=== PATIENT | male | born 1945 | race Caucasian/White ===

== ENCOUNTER 2017-06-18 17:08 | Inpatient (IN) | payer MEDICARE ==
--- NOTE | 2017-06-18 17:39 | ED Physician Chart ---
Chief Complaint/HPI - Patient Information Date Seen:: 06/18/17 Time Seen:: 17:19 Chief Complaint:: confused History of Present Illness:: THIS IS A 72 YO MALE SENT FROM A GROUP HOME FOR EVALUATION AND TREATMENT. HE IS CHRONICALLY ILL WITN DEMENTIA,ANEMIA,SCHIZOPHRENIA AND ANXIETY. Allergies:: Allergies Allergy/AdvReac Type Severity Reaction Status Date / Time No Known Allergies Allergy Verified 06/18/17 17:13 Vitals:: Vital Signs - 8 hr 06/18/17 17:14 Temp 97.8 F HR 57 RR 16 BP 121/80 O2 Sat % 97 Historian:: Medical Records Review:: Nurse's Note Reviewed, Old Chart Reviewed, Transfer documents Reviewed Review of Systems - Review of Systems General/Constitutional: No fever, No chills, No weight loss, No weakness, No diaphoresis, No edema, No loss of appetite, Other (THIS PATIENT CANNOT GIVE A REVIEW OF SYSTEMS) Skin: No skin lesions, No rash, No bruising Head: No headache, No light-headedness Eyes: No loss of vision, No pain, No diplopia ENT: No earache, No nasal drainage, No sore throat, No tinnitus Neck: No neck pain, No swelling, No thyromegaly, No stiffness, No mass noted Cardio Vascular: No chest pain, No palpitations, No PND, No orthopnea, No edema Pulmonary: No SOB, No cough, No sputum, No wheezing GI: No nausea, No vomiting, No diarrhea, No pain, No melena, No hematochezia, No constipation, No hematemesis G/U: No dysuria, No frequency, No hematuria Musculoskeletal: No bone or joint pain, No back pain, No muscle pain Endocrine: No polyuria, No polydipsia Psychiatric: No prior psych history, No depression, No anxiety, No suicidal ideation Hematopoietic: No bruising, No lymphadenopathy Allergic/Immuno: No urticaria, No angioedema Neurological: No syncope, No focal symptoms, No weakness, No paresthesia, No headache, No seizure, No dizziness, No confusion, No vertigo Past Medical History - Past Medical History Obtainable: Yes Past Medical History: Dementia Family History: None Social History: Non Smoker, No Alcohol, No Drug Use Surgical History: None Psychiatricy History: Schizophrenia, Dementia Physical Exam - Physical Examination General/Constitutional: Well-developed, well-nourished, Alert, No distress, GCS 15, Non-toxic appearing, Ambulatory Other Gen/Cons comments:: LETHARGIC AND DISORIENTED TIME FOUR. Head: Atraumatic Eyes: Lids, conjuctiva normal, PERRL, EOMI Skin: Nl inspection, No rash, No skin lesions, No ecchymosis, Well hydrated, No lymphadenopathy ENMT: External ears, nose nl, Nasal exam nl, Lips, teeth, gums nl Neck: Nontender, Full ROM w/o pain, No JVD, No nuchal rigidity, No bruit, No mass, No stridor Respiratory: Nl effort/Exclusion, Clear to Auscultation, No Wheeze/Rhonchi/Rales Cardio Vascular: RRR, No murmur, gallop, rubs, NL S1 S2 GI: No tenderness/rebounding/guarding, No organomegaly, No hernia, Normal BS's, Nondistended, No mass/bruits, No McBurney tenderness : No CVA tenderness Extremities: No tenderness or effusion, Full ROM, normal strength in all extremities, No edema, Normal digits & nails Neuro/Psych: Alert/oriented, DTR's symmetric, Normal sensory exam, Normal motor strength, Judgement/insight normal, Mood normal, Normal gait, No focal deficits Other Neuro/Psych comments:: THIS PATIENT AND GENERALIZE WEAKNESS Misc: normal gait, Normal back, No paraspinal tenderness Labs/Radiology/EKG Results - Lab Results Results: Abnormal Lab Results 06/18/17 06/18/17 06/18/17 17:42 17:42 17:42 WBC 6.9 RBC 5.03 Hgb 15.9 Hct 48.4 MCV 96.2 MCH 31.6 H MCHC Differential 32.8 RDW 14.1 Plt Count 118 L MPV 9.2 Neutrophils % 63.3 Lymphocytes % 26.0 Monocytes % 7.5 Eosinophils % 2.8 Basophils % 0.4 PT 10.1 INR 0.97 PTT (Actin FS) 23.3 L Sodium Potassium Chloride Carbon Dioxide Anion Gap BUN Creatinine Est GFR ( Amer) Est GFR (Non-Af Amer) BUN/Creatinine Ratio Glucose Calcium Total Bilirubin AST ALT Alkaline Phosphatase Troponin I Total Protein Albumin Globulin Albumin/Globulin Ratio Triglycerides 120 Cholesterol 192 LDL Cholesterol Direct 150 HDL Cholesterol 46 TSH 06/18/17 06/18/17 06/18/17 17:42 17:42 17:42 WBC RBC Hgb Hct MCV MCH MCHC Differential RDW Plt Count MPV Neutrophils % Lymphocytes % Monocytes % Eosinophils % Basophils % PT INR PTT (Actin FS) Sodium 150 H Potassium 4.6 Chloride 119 H Carbon Dioxide 28.8 Anion Gap 6.8 L BUN 52 H Creatinine 1.5 H Est GFR ( Amer) TNP Est GFR (Non-Af Amer) TNP BUN/Creatinine Ratio 34.7 Glucose 142 H Calcium 10.3 Total Bilirubin 0.3 AST 28 ALT 32 Alkaline Phosphatase 43 Troponin I 0.01 Total Protein 7.0 Albumin 4.3 Globulin 2.7 Albumin/Globulin Ratio 1.6 Triglycerides Cholesterol LDL Cholesterol Direct HDL Cholesterol TSH 1.27 - Radiology Results Results: CHEST X-RAY = NAD - EKG Interpretations EKG Time:: 17:27 Rate & Rhythm: RATE =57, SINUS HORTENSIA [place]: RIGHT Assessment - Assessment General Assessment: AGITATION ED Septic Shock - . Is Septic Shock (SBP<90, OR Lactate>4 mmol\L) present?: No - <6hrs of presentation: Vital Signs: Vital Signs - 8 hr 06/18/17 17:14 Temp 97.8 F HR 57 RR 16 BP 121/80 O2 Sat % 97 Reassessment (Disposition) - Reassessment Reassessment Condition:: Unchanged - Patient Disposition Discharge/Transfer:: Acute Care w/in this hosp Admitting Medical Physician:: Ganesh Hill Admitting Psych Physician:: Roopa Wilkerson Condition at Disposition:: Unchanged ED Discharge Plan - Patient Disposition Admit/Discharge/Transfer: Acute Care w/in this hosp Condition at Disposition: Unchanged Instructions: Psychosis
[2017-06-18 17:51] LABS: % BASOPHILS 0.4 % (0.0-2.0); % EOSINOPHILS 2.8 % (0.0-5.0); % MONOCYTES 7.5 % (2.0-10.0); % NEUTROPHILS 63.3 % (40.0-80.0); HEMATOCRIT 48.4 % (39.0-49.0); HEMOGLOBIN 15.9 gm/dL (12.6-17.4); MEAN CELL VOLUME 96.2 fl (80-99); MEAN CORPUSCULAR HEMOGLOBIN 31.6 pg (27.0-31.0); MEAN CORPUSCULAR HGB CONC 32.8 pg (28.0-36.0); MEAN PLATELET VOLUME 9.2 fl; NEUTROPHILE ABSOLUTE 4.4 Th/cmm (1.8-8.0); PLATELET COUNT 118 Th/cmm (150-400); RED BLOOD COUNT 5.03 Mil/cmm (3.80-5.80); RED CELL DISTRIBUTION WIDTH 14.1 % (11.5-20.0); WHITE BLOOD COUNT 6.9 Th/cmm (4.8-10.8)
[2017-06-18 18:02] LABS: INR 0.97 (0.5-1.4); PROTHROMBIN TIME (TEST) 10.1 SECONDS (9.5-11.5)
[2017-06-18 18:06] LABS: ALB/GLOB RATIO 1.6 (1.0-1.8); ALKALINE PHOSPHATASE 43 U/L (34-104); ANION GAP 6.8 (7.0-16.0); BILIRUBIN,TOTAL 0.3 mg/dL (0.3-1.0); BUN - UREA NITROGEN 52 mg/dL (7-25); BUN/CREATININE RATIO 34.7; CALCIUM SERUM 10.3 mg/dL (8.6-10.3); CARBON DIOXIDE 28.8 mEq/L (21.0-31.0); CHLORIDE 119 mEq/L (98-107); CREATININE - SERUM 1.5 mg/dL (0.7-1.3); GLUCOSE 142 mg/dL (70-105); POTASSIUM SERUM 4.6 mEq/L (3.5-5.1); SGOT 28 U/L (13-39); SGPT/ALT 32 U/L (7-52); SODIUM SERUM 150 mEq/L (136-145)
[2017-06-18 18:07] LABS: CHOLESTEROL 192 mg/dL (<200); TRIGLYCERIDES 120 mg/dL (<150)
[2017-06-18] MEDS ORDERED: Magnesium Hydroxide (MOM) 30 mL UDC PO PRN (22:03)
[2017-06-18] MEDS ORDERED: Maalox 30 mL Cup PO PRN (22:03)
[2017-06-18] MEDS ORDERED: Fleet Enema 135 mL RC PRN (22:11)
[2017-06-19 02:41] VITALS: BP 127/59
--- NOTE | 2017-06-19 03:41 | Admit Criteria Form ---
Admit Criteria Forms - Admit Criteria Diagnosis: PSYCHIATRIC DISORDERS (Place 'X' for any and all applicable criteria): Ongoing inpatient care may be needed for 1 or more of the following(1)(2)(3)(4)( 6)(7)(8): [ ]I. Danger to self or others not manageable at lower level of care. [ ]II. Grave disability (eg, inability to perform self care necessary at lower level of care) [X ]III. Agitation or inappropriate behavior interfering with care for primary condition (eg, attempting to discontinue lines or drains prematurely, unable to cooperate with respiratory care) [ ]IV. Severe disability or disorder indicated by ALL of the following: [ ]a) Severe behavioral health disorder-related symptoms or condition indicated by 1 or more of the following: [ ]i) Severe problem with cognition, memory, judgment, or impulse control [ ]ii) Severe clinical manifestations (eg, hallucinations, delusions, other acute psychotic symptoms, casper, extreme agitation or anxiety) [ ]b) Patient management at lower level of care is not feasible until acute intervention or modification is initiated. Extended stay beyond goal length of stay for the primary condition may be needed until ALLof the following are present(1)(2)(3)(4)(722)(23): [ ]a) Danger to self or others is absent or manageable at lower level of care [ ]b) Behavior crisis management, including physical or chemical restraints, is required and is not available at a lower level of care. [ ]c) Behavioral symptoms (e.g., agitation, somnolence, inappropriate behavior) are present, and are not manageable at a lower level of care. [ ]d) Patient cannot understand follow-up treatment and crisis plan. [ ]e) Provider and supports are sufficiently available at lower level of care. [ ]f) Patient can participate (e.g., verify absence of plan for harm) and is in needed of monitoring. The original [facility] content created by [facility] has been revised. The portions of the content which have been revised are identified through the use of italic text or in bold, and [facility] [employer] has neither reviewed nor approved the modified material. All other unmodified content is copyright [facility]. Please see references footnoted in the original [facility] edition 2017 Admit Criteria Met?: Yes
--- NOTE | 2017-06-19 08:14 | Diagnostic Imaging Report ---
Portable chest x-ray HISTORY: Shortness of breath The heart size is normal. No focal pulmonary processes. No hilar or mediastinal abnormalities. Degenerative changes seen to the spine. IMPRESSION: No acute abnormalities
--- NOTE | 2017-06-19 08:57 | History and Physical ---
History of Present Illness - HPI Chief Complaint: psychosis HPI: 72 year old male who presents to [facility] ER from SNF for change in behavior with increase confusion noted by nursing staff. Patient has a history of dementia, anemia, Schizophrenia and anxiety disorder. He has a history of vascular dementia and metabolic encephalopathy, anemia. While in the ER the patient had labwork which was normal and chest xray was negative. He was subsequently transferred to the medical center for further evaluation and treatment. Vital Signs: Last Vital Signs Temp 96.8 F 06/18/17 21:55 Pulse 65 06/18/17 21:55 Resp 19 06/18/17 21:55 BP 127/59 06/19/17 02:41 Pulse Ox 97 06/18/17 21:55 Past Medical History Cardiovascular: Report: No Pertinent Hx Pulmonary: Report: No Pertinent Hx CLINICAL OB: Report: No Pertinent Hx, Dementia, Other (metabolic encephalopathy, vascular dementia) GI: Report: No Pertinent Hx Psych: Report: No Pertinent Hx, Anxiety, Schizophrenia Musculoskeletal: Report: No Pertinent Hx, Weakness Rheumatologic: Report: No pertinent Hx Infectious Disease: Report: No Pertinent Hx Renal/: Report: No Pertinent Hx Endocrine: Report: No Pertinent Hx Dermatology: Report: No Pertinent Hx - Past Surgical History Past Surgical History: No pertinent Hx Family Medical History - Family Member Mother History Unknown: Yes Social History Smoke: No Alcohol: None Drugs: None Lives: Longterm - Medications Home Medications: Home Medication Medication Instructions Recorded Type Acetaminophen [Tylenol] 325 mg PO Q4HR PRN 06/18/17 History Acetaminophen [Tylenol] 650 mg PO Q4HR PRN 06/18/17 History Aspirin [Aspirin Chewable] 81 mg PO DAILY 06/18/17 History Bisacodyl [Dulcolax 10 Mg Supp] 10 mg RC Q72H PRN 06/18/17 History Buspirone HCl 5 mg PO BID 06/18/17 History Fleet Enema [Fleet Enema] 118 ml RC Q72H PRN 06/18/17 History Magnesium Hydroxide [Milk of 30 ml PO Q72H PRN 06/18/17 History Magnesia] Multivitamin [Multi-Day Vitamins] 1 each PO DAILY 06/18/17 History clonazePAM [klonoPIN] 1 mg PO Q6H PRN 06/18/17 History - Allergies Allergies/Adverse Reactions: Allergies Allergy/AdvReac Type Severity Reaction Status Date / Time No Known Allergies Allergy Verified 06/18/17 17:13 Review of Systems - Review of Systems Constitutional: Report: No Significant Eyes: Report: No Significant ENT: Report: No Significant Respiratory: Report: No Significant Cardiovascular: Report: No Significant Gastrointestinal: Report: No Significant Genitourinary: Report: No Significant Musculoskeletal: Report: No Significant Skin: Report: No Significant Neurological: Report: No Significant, Confusion Physical Exam - Physical Exam HEENT: Report: Ears Nose Throat within normal limits, Pharnyx within normal limits Neck: Report: Within normal limits Cardiovascular Systems: Report: +s1/s2 noted, Regular, Rate and Rhythm Respiratory: Report: Breath Sounds are within normal limits, Clear to Auscultation of lung ayon Abdomen: Report: Non-tender to palpation, Tender to palpation Back: Report: Inspection of back is within normal limits. Extremities: Report: Non-tender to palpation. Skin: Report: Color of skin is within normal limits - Lab Results All Lab Results last 24 hours: Laboratory Last Values WBC 6.9 Th/cmm (4.8-10.8) 06/18/17 17:42 RBC 5.03 Mil/cmm (3.80-5.80) 06/18/17 17:42 Hgb 15.9 gm/dL (12.6-17.4) 06/18/17 17:42 Hct 48.4 % (39.0-49.0) 06/18/17 17:42 MCV 96.2 fl (80-99) 06/18/17 17:42 MCH 31.6 pg (27.0-31.0) H 06/18/17 17:42 MCHC Differential 32.8 pg (28.0-36.0) 06/18/17 17:42 RDW 14.1 % (11.5-20.0) 06/18/17 17:42 Plt Count 118 Th/cmm (150-400) L 06/18/17 17:42 MPV 9.2 fl 06/18/17 17:42 Neutrophils % 63.3 % (40.0-80.0) 06/18/17 17:42 Lymphocytes % 26.0 % (20.0-50.0) 06/18/17 17:42 Monocytes % 7.5 % (2.0-10.0) 06/18/17 17:42 Eosinophils % 2.8 % (0.0-5.0) 06/18/17 17:42 Basophils % 0.4 % (0.0-2.0) 06/18/17 17:42 PT 10.1 SECONDS (9.5-11.5) 06/18/17 17:42 INR 0.97 (0.5-1.4) 06/18/17 17:42 PTT (Actin FS) 23.3 SECONDS (26.0-38.0) L 06/18/17 17:42 Sodium 150 mEq/L (136-145) H 06/18/17 17:42 Potassium 4.6 mEq/L (3.5-5.1) 06/18/17 17:42 Chloride 119 mEq/L (98-107) H 06/18/17 17:42 Carbon Dioxide 28.8 mEq/L (21.0-31.0) 06/18/17 17:42 Anion Gap 6.8 (7.0-16.0) L 06/18/17 17:42 BUN 52 mg/dL (7-25) H 06/18/17 17:42 Creatinine 1.5 mg/dL (0.7-1.3) H 06/18/17 17:42 Est GFR ( Amer) TNP 06/18/17 17:42 Est GFR (Non-Af Amer) TNP 06/18/17 17:42 BUN/Creatinine Ratio 34.7 06/18/17 17:42 Glucose 142 mg/dL (70-105) H 06/18/17 17:42 Calcium 10.3 mg/dL (8.6-10.3) 06/18/17 17:42 Total Bilirubin 0.3 mg/dL (0.3-1.0) 06/18/17 17:42 AST 28 U/L (13-39) 06/18/17 17:42 ALT 32 U/L (7-52) 06/18/17 17:42 Alkaline Phosphatase 43 U/L (34-104) 06/18/17 17:42 Troponin I 0.01 ng/mL (0.01-0.05) 06/18/17 17:42 Total Protein 7.0 gm/dL (6.0-8.3) 06/18/17 17:42 Albumin 4.3 gm/dL (4.2-5.5) 06/18/17 17:42 Globulin 2.7 gm/dL 06/18/17 17:42 Albumin/Globulin Ratio 1.6 (1.0-1.8) 06/18/17 17:42 Triglycerides 120 mg/dL (<150) 06/18/17 17:42 Cholesterol 192 mg/dL (<200) 06/18/17 17:42 LDL Cholesterol Direct 150 mg/dL (75-193) 06/18/17 17:42 HDL Cholesterol 46 mg/dL (23-92) 06/18/17 17:42 TSH 1.27 uIU/ml (0.34-5.60) 06/18/17 17:42 RPR NONREACTIVE (NONREACTIVE) 06/18/17 17:42 - Assessment Assessment: Current Active Problems Problem Status Onset INCREASED AGITATION AND LOWER LIP TRAUMA Acute psychosis dementia schizophrenia anxiety disorder metabolic encephalopathy anemia muscle weakness - [facility]
[2017-06-19] MEDS: Aspirin 81mg Chewable Tab PO SCH (09:57)
[2017-06-19] MEDS: Multivitamin Tab PO SCH (09:57)
--- NOTE | 2017-06-19 16:00 | History & Physical ---
ADMIT DATE: 06/19/2017 IDENTIFYING INFORMATION: The patient is a 72-year-old male. CHIEF COMPLAINT: No answer. HISTORY OF PRESENT ILLNESS: The patient is referred from [facility] because of agitation and confusion, not following direction, combative, fighting with staff. The patient himself was a poor historian. He was unable to answer any of my questions. His affect was very flat, unable to make any eye contact or participate in any meaningful conversation. He was ____ combative behavior and schizophrenia. PAST PSYCHIATRIC HISTORY: Schizophrenia. MEDICAL HISTORY: Deferred to the medical doctor. ALLERGIES: He has no known drug allergies. MEDICATIONS: The patient has been on BuSpar 10 mg twice a day, clonazepam 0.5 mg every 6 hours as needed. I also added gabapentin 100 mg 3 times yesterday, ____ 1 mg every 6 hours. FAMILY AND SOCIAL HISTORY: Unobtainable. MENTAL STATUS EXAMINATION: The patient is appropriately dressed, not well groomed. His mood is depressed. Affect is flat. ____ fragmented, unable to participate in meaningful conversation, unable to participate in a memory testing. He was combative at [facility] facility that he was at, unpredictable, impulsive, needing redirection. He is unable to answer questions regarding hallucinations, suicidal ideation and homicidal ideation. His insight and judgment is impaired. IMPRESSION: AXIS I: Psychosis, not otherwise specified, and dementia. MEDICAL DIAGNOSIS: Deferred to the medical doctor. His assists accepting treatment. Negative poor coping skills. INITIAL TREATMENT PLAN: The patient will be started on Risperdal. We will do group therapy, milieu therapy, individual therapy. ESTIMATED LENGTH OF STAY: 3-7 days. DISCHARGE CRITERIA: Decreasing psychosis, agitation, combative behavior. After discharge, outpatient treatment. JOB# [id number]
--- NOTE | 2017-06-20 08:25 | General Progress Note ---
Subjective - Review of Systems Service Date: 06/20/17 Subjective: Awake, alert, afebrile Objective - Results Result Diagrams: 06/18/17 17:42 06/18/17 17:42 Recent Labs: Laboratory Last Values WBC 6.9 Th/cmm (4.8-10.8) 06/18/17 17:42 RBC 5.03 Mil/cmm (3.80-5.80) 06/18/17 17:42 Hgb 15.9 gm/dL (12.6-17.4) 06/18/17 17:42 Hct 48.4 % (39.0-49.0) 06/18/17 17:42 MCV 96.2 fl (80-99) 06/18/17 17:42 MCH 31.6 pg (27.0-31.0) H 06/18/17 17:42 MCHC Differential 32.8 pg (28.0-36.0) 06/18/17 17:42 RDW 14.1 % (11.5-20.0) 06/18/17 17:42 Plt Count 118 Th/cmm (150-400) L 06/18/17 17:42 MPV 9.2 fl 06/18/17 17:42 Neutrophils % 63.3 % (40.0-80.0) 06/18/17 17:42 Lymphocytes % 26.0 % (20.0-50.0) 06/18/17 17:42 Monocytes % 7.5 % (2.0-10.0) 06/18/17 17:42 Eosinophils % 2.8 % (0.0-5.0) 06/18/17 17:42 Basophils % 0.4 % (0.0-2.0) 06/18/17 17:42 PT 10.1 SECONDS (9.5-11.5) 06/18/17 17:42 INR 0.97 (0.5-1.4) 06/18/17 17:42 PTT (Actin FS) 23.3 SECONDS (26.0-38.0) L 06/18/17 17:42 Sodium 150 mEq/L (136-145) H 06/18/17 17:42 Potassium 4.6 mEq/L (3.5-5.1) 06/18/17 17:42 Chloride 119 mEq/L (98-107) H 06/18/17 17:42 Carbon Dioxide 28.8 mEq/L (21.0-31.0) 06/18/17 17:42 Anion Gap 6.8 (7.0-16.0) L 06/18/17 17:42 BUN 52 mg/dL (7-25) H 06/18/17 17:42 Creatinine 1.5 mg/dL (0.7-1.3) H 06/18/17 17:42 Est GFR ( Amer) TNP 06/18/17 17:42 Est GFR (Non-Af Amer) TNP 06/18/17 17:42 BUN/Creatinine Ratio 34.7 06/18/17 17:42 Glucose 142 mg/dL (70-105) H 06/18/17 17:42 Calcium 10.3 mg/dL (8.6-10.3) 06/18/17 17:42 Total Bilirubin 0.3 mg/dL (0.3-1.0) 06/18/17 17:42 AST 28 U/L (13-39) 06/18/17 17:42 ALT 32 U/L (7-52) 06/18/17 17:42 Alkaline Phosphatase 43 U/L (34-104) 06/18/17 17:42 Troponin I 0.01 ng/mL (0.01-0.05) 06/18/17 17:42 Total Protein 7.0 gm/dL (6.0-8.3) 06/18/17 17:42 Albumin 4.3 gm/dL (4.2-5.5) 06/18/17 17:42 Globulin 2.7 gm/dL 06/18/17 17:42 Albumin/Globulin Ratio 1.6 (1.0-1.8) 06/18/17 17:42 Triglycerides 120 mg/dL (<150) 06/18/17 17:42 Cholesterol 192 mg/dL (<200) 06/18/17 17:42 LDL Cholesterol Direct 150 mg/dL (75-193) 06/18/17 17:42 HDL Cholesterol 46 mg/dL (23-92) 06/18/17 17:42 TSH 1.27 uIU/ml (0.34-5.60) 06/18/17 17:42 RPR NONREACTIVE (NONREACTIVE) 06/18/17 17:42 - Physical Exam Vitals and I&O: Vital Signs Temp 98.1 F 06/20/17 05:49 Pulse 78 06/20/17 05:49 Resp 19 06/20/17 05:49 BP 130/80 06/20/17 05:49 Pulse Ox 94 06/20/17 05:49 Intake & Output 06/19/17 06/20/17 06/20/17 18:59 06:59 18:59 Intake Total 1800 300 Balance 1800 300 Weight (lbs) 70.307 kg Intake: Oral 1800 300 Other: # Voids 4 1 # Bowel Movements 0 0 Active Medications: Current Medications Acetaminophen (Tylenol) 650 mg PO Q4HR PRN PRN Reason: Mild Pain / Temp above 100 Stop: 08/17/17 22:02 Al Hydrox/Mg Hydrox/Simethicone (Maalox) 30 ml PO Q4HR PRN PRN Reason: GI DISTRESS Stop: 08/17/17 22:02 Aspirin (Aspirin Chewable) 81 mg PO DAILY [facility] Stop: 08/18/17 08:59 Last Admin: 06/19/17 09:57 Dose: 81 mg Bisacodyl (Dulcolax 10 Mg Supp) 10 mg RC Q72HR PRN PRN Reason: Constipation Stop: 08/17/17 22:14 Buspirone HCl (Buspar) 10 mg PO BID CHRISTOPHER PRN Reason: Protocol Stop: 08/18/17 16:59 Last Admin: 06/19/17 16:46 Dose: 10 mg Clonazepam (Klonopin) 0.5 mg PO Q6H PRN; Protocol PRN Reason: Anxiety Stop: 08/18/17 13:59 Gabapentin (Neurontin) 100 mg PO TID [facility] Stop: 08/18/17 08:59 Last Admin: 06/19/17 21:28 Dose: 100 mg Magnesium Hydroxide (Milk Of Magnesia) 30 ml PO HS PRN PRN Reason: Constipation Multivitamins/Vitamin C (Theragran) 1 tab PO DAILY CHRISTOPHER Stop: 08/18/17 08:59 Last Admin: 06/19/17 09:57 Dose: 1 tab Risperidone (Risperdal) 0.5 mg PO BID CHRISTOPHER PRN Reason: Protocol Stop: 08/18/17 16:59 Last Admin: 08/08/17 16:46 Dose: 0.5 mg Sodium Phosphate (Fleet Enema) 135 ml RC Q72HR PRN PRN Reason: Constipation Stop: 08/17/17 22:14 Zolpidem Tartrate (Ambien) 5 mg PO HS PRN PRN Reason: Insomnia Stop: 08/17/17 22:02 General: Alert, No acute distress HEENT: Atraumatic, PERRLA, EOMI Neck: Supple Cardiovascular: Regular rate, Normal S1, Normal S2 Lungs: Clear to auscultation Abdomen: Bowel sounds, Soft Extremities: no Clubbing, no Cyanosis, no Edema Neurological: Normal gait, Normal speech Skin: no Rash Assessment/Plan - Problem List Patient Problems: All Active Problems INCREASED AGITATION AND LOWER LIP TRAUMA (Acute) - Assessment Assessment: Current Active Problems Problem Status Onset INCREASED AGITATION AND LOWER LIP TRAUMA Acute psychosis dementia schizophrenia anxiety disorder metabolic encephalopathy anemia muscle weakness - Plan Plan: Continue current treatment
[2017-06-20] MEDS: Aspirin 81mg Chewable Tab PO SCH (08:44)
[2017-06-20] MEDS: Multivitamin Tab PO SCH (08:44)
--- NOTE | 2017-06-20 22:41 | Progress Notes ---
DATE: 06/20/2017 SUBJECTIVE: Case was discussed with staff of the patient, reviewed records. The patient confused, unable to participate in a meaningful conversation or make safe plan for self-care. Looking disheveled, disorganized, internally preoccupied. He continues to be unpredictable, impulsive, needing redirection. He is sleeping better. No side effects with the medication, no sedation, no nausea, no extrapyramidal symptoms, and I did initiate Risperdal on him because of his agitation. I will try to get him off the Klonopin. We will continue to work with the patient in group therapy, milieu therapy, and adjust medications as needed. JOB# [id number]
--- NOTE | 2017-06-21 08:19 | General Progress Note ---
Subjective - Review of Systems Service Date: 06/21/17 Subjective: Awake, alert, afebrile Objective - Results Result Diagrams: 06/18/17 17:42 06/18/17 17:42 Recent Labs: Laboratory Last Values WBC 6.9 Th/cmm (4.8-10.8) 06/18/17 17:42 RBC 5.03 Mil/cmm (3.80-5.80) 06/18/17 17:42 Hgb 15.9 gm/dL (12.6-17.4) 06/18/17 17:42 Hct 48.4 % (39.0-49.0) 06/18/17 17:42 MCV 96.2 fl (80-99) 06/18/17 17:42 MCH 31.6 pg (27.0-31.0) H 06/18/17 17:42 MCHC Differential 32.8 pg (28.0-36.0) 06/18/17 17:42 RDW 14.1 % (11.5-20.0) 06/18/17 17:42 Plt Count 118 Th/cmm (150-400) L 06/18/17 17:42 MPV 9.2 fl 06/18/17 17:42 Neutrophils % 63.3 % (40.0-80.0) 06/18/17 17:42 Lymphocytes % 26.0 % (20.0-50.0) 06/18/17 17:42 Monocytes % 7.5 % (2.0-10.0) 06/18/17 17:42 Eosinophils % 2.8 % (0.0-5.0) 06/18/17 17:42 Basophils % 0.4 % (0.0-2.0) 06/18/17 17:42 PT 10.1 SECONDS (9.5-11.5) 06/18/17 17:42 INR 0.97 (0.5-1.4) 06/18/17 17:42 PTT (Actin FS) 23.3 SECONDS (26.0-38.0) L 06/18/17 17:42 Sodium 150 mEq/L (136-145) H 06/18/17 17:42 Potassium 4.6 mEq/L (3.5-5.1) 06/18/17 17:42 Chloride 119 mEq/L (98-107) H 06/18/17 17:42 Carbon Dioxide 28.8 mEq/L (21.0-31.0) 06/18/17 17:42 Anion Gap 6.8 (7.0-16.0) L 06/18/17 17:42 BUN 52 mg/dL (7-25) H 06/18/17 17:42 Creatinine 1.5 mg/dL (0.7-1.3) H 06/18/17 17:42 Est GFR ( Amer) TNP 06/18/17 17:42 Est GFR (Non-Af Amer) TNP 06/18/17 17:42 BUN/Creatinine Ratio 34.7 06/18/17 17:42 Glucose 142 mg/dL (70-105) H 06/18/17 17:42 Calcium 10.3 mg/dL (8.6-10.3) 06/18/17 17:42 Total Bilirubin 0.3 mg/dL (0.3-1.0) 06/18/17 17:42 AST 28 U/L (13-39) 06/18/17 17:42 ALT 32 U/L (7-52) 06/18/17 17:42 Alkaline Phosphatase 43 U/L (34-104) 06/18/17 17:42 Troponin I 0.01 ng/mL (0.01-0.05) 06/18/17 17:42 Total Protein 7.0 gm/dL (6.0-8.3) 06/18/17 17:42 Albumin 4.3 gm/dL (4.2-5.5) 06/18/17 17:42 Globulin 2.7 gm/dL 06/18/17 17:42 Albumin/Globulin Ratio 1.6 (1.0-1.8) 06/18/17 17:42 Triglycerides 120 mg/dL (<150) 06/18/17 17:42 Cholesterol 192 mg/dL (<200) 06/18/17 17:42 LDL Cholesterol Direct 150 mg/dL (75-193) 06/18/17 17:42 HDL Cholesterol 46 mg/dL (23-92) 06/18/17 17:42 TSH 1.27 uIU/ml (0.34-5.60) 06/18/17 17:42 RPR NONREACTIVE (NONREACTIVE) 06/18/17 17:42 - Physical Exam Vitals and I&O: Vital Signs Temp 97.6 F 06/20/17 14:00 Pulse 80 06/20/17 14:00 Resp 20 06/20/17 14:00 BP 124/86 06/20/17 14:00 Pulse Ox 97 06/20/17 14:00 Intake & Output 06/20/17 06/21/17 06/21/17 18:59 06:59 18:59 Intake Total 800 120 Balance 800 120 Intake: Oral 120 Other 800 Other: # Voids 3 3 # Bowel Movements 0 Active Medications: Current Medications Acetaminophen (Tylenol) 650 mg PO Q4HR PRN PRN Reason: Mild Pain / Temp above 100 Stop: 08/17/17 22:02 Al Hydrox/Mg Hydrox/Simethicone (Maalox) 30 ml PO Q4HR PRN PRN Reason: GI DISTRESS Stop: 08/17/17 22:02 Aspirin (Aspirin Chewable) 81 mg PO DAILY [facility] Stop: 08/18/17 08:59 Last Admin: 06/20/17 08:44 Dose: 81 mg Bisacodyl (Dulcolax 10 Mg Supp) 10 mg RC Q72HR PRN PRN Reason: Constipation Stop: 08/17/17 22:14 Buspirone HCl (Buspar) 10 mg PO BID [facility] PRN Reason: Protocol Stop: 08/18/17 16:59 Last Admin: 06/20/17 16:37 Dose: 10 mg Clonazepam (Klonopin) 0.5 mg PO Q6H PRN; Protocol PRN Reason: Anxiety Stop: 08/18/17 13:59 Last Admin: 06/20/17 13:46 Dose: 0.5 mg Gabapentin (Neurontin) 100 mg PO TID [facility] Stop: 08/18/17 08:59 Last Admin: 06/20/17 20:55 Dose: 100 mg Magnesium Hydroxide (Milk Of Magnesia) 30 ml PO HS PRN PRN Reason: Constipation Multivitamins/Vitamin C (Theragran) 1 tab PO DAILY [facility] Stop: 08/18/17 08:59 Last Admin: 06/20/17 08:44 Dose: 1 tab Risperidone (Risperdal) 0.5 mg PO BID [facility] PRN Reason: Protocol Stop: 08/18/17 16:59 Last Admin: 06/20/17 16:46 Dose: 0.5 mg Sodium Phosphate (Fleet Enema) 135 ml RC Q72HR PRN PRN Reason: Constipation Stop: 08/17/17 22:14 Zolpidem Tartrate (Ambien) 5 mg PO HS PRN PRN Reason: Insomnia Stop: 08/17/17 22:02 General: Alert, No acute distress HEENT: Atraumatic, PERRLA, EOMI Neck: Supple Cardiovascular: Regular rate, Normal S1, Normal S2 Lungs: Clear to auscultation Abdomen: Bowel sounds, Soft Extremities: no Clubbing, no Cyanosis, no Edema Neurological: Normal gait, Normal speech Skin: no Rash Assessment/Plan - Problem List Patient Problems: All Active Problems INCREASED AGITATION AND LOWER LIP TRAUMA (Acute) - Assessment Assessment: Current Active Problems Problem Status Onset INCREASED AGITATION AND LOWER LIP TRAUMA Acute psychosis dementia schizophrenia anxiety disorder metabolic encephalopathy anemia muscle weakness - Plan Plan: continue current treatment
[2017-06-21] MEDS: Aspirin 81mg Chewable Tab PO SCH (09:07)
[2017-06-21] MEDS: Multivitamin Tab PO SCH (09:08)
--- NOTE | 2017-06-22 03:02 | Progress Notes ---
DATE: 06/21/2017 Case was discussed with staff of the patient, reviewed records. The patient continues to be very confused, continues to be unable to participate in meaningful conversation, internally preoccupied. Continues to have poor insight, unpredictable, impulsive, needing redirection. He is sleeping well, eating better. No side effects with the medication, no nausea. I will be tapering down his Klonopin and increase Neurontin and so far he is on the Risperdal, unpredictable, impulsive, needing redirection, and we will continue to work with the patient in group therapy, milieu therapy, and adjust medication as needed. JOB# [id number]
--- NOTE | 2017-06-22 08:02 | General Progress Note ---
Subjective - Review of Systems Service Date: 06/22/17 Subjective: Awake, alert, afebrile. No new changes. Objective - Results Result Diagrams: 06/18/17 17:42 06/18/17 17:42 Recent Labs: Laboratory Last Values WBC 6.9 Th/cmm (4.8-10.8) 06/18/17 17:42 RBC 5.03 Mil/cmm (3.80-5.80) 06/18/17 17:42 Hgb 15.9 gm/dL (12.6-17.4) 06/18/17 17:42 Hct 48.4 % (39.0-49.0) 06/18/17 17:42 MCV 96.2 fl (80-99) 06/18/17 17:42 MCH 31.6 pg (27.0-31.0) H 06/18/17 17:42 MCHC Differential 32.8 pg (28.0-36.0) 06/18/17 17:42 RDW 14.1 % (11.5-20.0) 06/18/17 17:42 Plt Count 118 Th/cmm (150-400) L 06/18/17 17:42 MPV 9.2 fl 06/18/17 17:42 Neutrophils % 63.3 % (40.0-80.0) 06/18/17 17:42 Lymphocytes % 26.0 % (20.0-50.0) 06/18/17 17:42 Monocytes % 7.5 % (2.0-10.0) 06/18/17 17:42 Eosinophils % 2.8 % (0.0-5.0) 06/18/17 17:42 Basophils % 0.4 % (0.0-2.0) 06/18/17 17:42 PT 10.1 SECONDS (9.5-11.5) 06/18/17 17:42 INR 0.97 (0.5-1.4) 06/18/17 17:42 PTT (Actin FS) 23.3 SECONDS (26.0-38.0) L 06/18/17 17:42 Sodium 150 mEq/L (136-145) H 06/18/17 17:42 Potassium 4.6 mEq/L (3.5-5.1) 08/07/17 17:42 Chloride 119 mEq/L (98-107) H 06/18/17 17:42 Carbon Dioxide 28.8 mEq/L (21.0-31.0) 06/18/17 17:42 Anion Gap 6.8 (7.0-16.0) L 06/18/17 17:42 BUN 52 mg/dL (7-25) H 06/18/17 17:42 Creatinine 1.5 mg/dL (0.7-1.3) H 06/18/17 17:42 Est GFR ( Amer) TNP 06/18/17 17:42 Est GFR (Non-Af Amer) TNP 06/18/17 17:42 BUN/Creatinine Ratio 34.7 06/18/17 17:42 Glucose 142 mg/dL (70-105) H 06/18/17 17:42 Calcium 10.3 mg/dL (8.6-10.3) 06/18/17 17:42 Total Bilirubin 0.3 mg/dL (0.3-1.0) 06/18/17 17:42 AST 28 U/L (13-39) 06/18/17 17:42 ALT 32 U/L (7-52) 06/18/17 17:42 Alkaline Phosphatase 43 U/L (34-104) 06/18/17 17:42 Troponin I 0.01 ng/mL (0.01-0.05) 06/18/17 17:42 Total Protein 7.0 gm/dL (6.0-8.3) 06/18/17 17:42 Albumin 4.3 gm/dL (4.2-5.5) 06/18/17 17:42 Globulin 2.7 gm/dL 06/18/17 17:42 Albumin/Globulin Ratio 1.6 (1.0-1.8) 06/18/17 17:42 Triglycerides 120 mg/dL (<150) 06/18/17 17:42 Cholesterol 192 mg/dL (<200) 06/18/17 17:42 LDL Cholesterol Direct 150 mg/dL (75-193) 06/18/17 17:42 HDL Cholesterol 46 mg/dL (23-92) 06/18/17 17:42 TSH 1.27 uIU/ml (0.34-5.60) 06/18/17 17:42 RPR NONREACTIVE (NONREACTIVE) 06/18/17 17:42 - Physical Exam Vitals and I&O: Vital Signs Temp 97.9 F 06/21/17 15:21 Pulse 68 06/21/17 15:21 Resp 20 06/21/17 15:21 BP 111/73 06/21/17 15:21 Pulse Ox 95 06/21/17 15:21 Intake & Output 06/21/17 06/22/17 06/22/17 18:59 06:59 18:59 Intake Total 800 Balance 800 Intake: Oral 800 Other: # Voids 3 # Bowel Movements 0 Active Medications: Current Medications Acetaminophen (Tylenol) 650 mg PO Q4HR PRN PRN Reason: Mild Pain / Temp above 100 Stop: 08/17/17 22:02 Al Hydrox/Mg Hydrox/Simethicone (Maalox) 30 ml PO Q4HR PRN PRN Reason: GI DISTRESS Stop: 08/17/17 22:02 Aspirin (Aspirin Chewable) 81 mg PO DAILY [facility] Stop: 08/18/17 08:59 Last Admin: 06/21/17 09:07 Dose: 81 mg Bisacodyl (Dulcolax 10 Mg Supp) 10 mg RC Q72HR PRN PRN Reason: Constipation Stop: 08/17/17 22:14 Buspirone HCl (Buspar) 10 mg PO BID [facility] PRN Reason: Protocol Stop: 08/18/17 16:59 Last Admin: 06/21/17 17:05 Dose: 10 mg Clonazepam (Klonopin) 0.5 mg PO TID PRN; Protocol PRN Reason: Anxiety Stop: 08/18/17 13:59 Gabapentin (Neurontin) 100 mg PO QID [facility] Stop: 08/20/17 12:59 Last Admin: 06/21/17 20:20 Dose: 100 mg Magnesium Hydroxide (Milk Of Magnesia) 30 ml PO HS PRN PRN Reason: Constipation Multivitamins/Vitamin C (Theragran) 1 tab PO DAILY [facility] Stop: 08/18/17 08:59 Last Admin: 06/21/17 09:08 Dose: 1 tab Risperidone (Risperdal) 0.5 mg PO BID [facility] PRN Reason: Protocol Stop: 08/18/17 16:59 Last Admin: 06/21/17 17:05 Dose: 0.5 mg Sodium Phosphate (Fleet Enema) 135 ml RC Q72HR PRN PRN Reason: Constipation Stop: 08/17/17 22:14 Zolpidem Tartrate (Ambien) 5 mg PO HS PRN PRN Reason: Insomnia Stop: 08/17/17 22:02 Last Admin: 06/21/17 20:20 Dose: 5 mg General: Alert, No acute distress HEENT: Atraumatic, PERRLA, EOMI Neck: Supple Cardiovascular: Regular rate, Normal S1, Normal S2 Lungs: Clear to auscultation Abdomen: Bowel sounds, Soft Extremities: no Clubbing, no Cyanosis, no Edema Neurological: Normal gait, Normal speech Skin: no Rash Assessment/Plan - Problem List Patient Problems: All Active Problems Anemia (Acute) D64.9 Anxiety (Acute) F41.9 Dementia (Acute) F03.90 Elevated blood sugar (Acute) R73.9 Encephalopathy (Acute) G93.40 Hypernatremia (Acute) E87.0 INCREASED AGITATION AND LOWER LIP TRAUMA (Acute) Psychosis (Acute) F29 Renal insufficiency (Acute) Schizophrenia (Acute) F20.9 Weakness (Acute) - Assessment Assessment: Current Active Problems Problem Status Onset INCREASED AGITATION AND LOWER LIP TRAUMA Acute psychosis dementia schizophrenia anxiety disorder metabolic encephalopathy anemia muscle weakness renal insufficiency elevated blood sugar hypernatremia - Plan Plan: psychosis schizophrenia dementia encephalopathy anxiety disorder anemia weakness renal insufficiency with hypernatremia ... encourage PO fluids, will repeat BMP today. Elevated blood sugar ... will order a HgA1c and accuchecks
[2017-06-22] MEDS: Multivitamin Tab PO SCH (09:03)
[2017-06-22] MEDS: Aspirin 81mg Chewable Tab PO SCH (09:03)
--- NOTE | 2017-06-23 00:59 | Progress Notes ---
DATE: 06/22/2017 Case was discussed with staff of the patient, reviewed records. The patient continues to be confused and delusional. Continues to be unable to state a safe plan for self-care. He continues to be unpredictable, impulsive with episodes of agitation. Continues to need redirection, poor insight, , sleeping better and eating better. No side effects, no sedation, no nausea, no extrapyramidal symptoms. We will continue to work with the patient in group therapy, milieu therapy, and adjust the medication as needed. JOB# [id number]
--- NOTE | 2017-06-23 07:46 | General Progress Note ---
Subjective - Review of Systems Service Date: 06/23/17 Subjective: Awake, alert, afebrile. No new changes. Objective - Results Result Diagrams: 06/18/17 17:42 06/18/17 17:42 Recent Labs: Laboratory Last Values WBC 6.9 Th/cmm (4.8-10.8) 06/18/17 17:42 RBC 5.03 Mil/cmm (3.80-5.80) 06/18/17 17:42 Hgb 15.9 gm/dL (12.6-17.4) 06/18/17 17:42 Hct 48.4 % (39.0-49.0) 06/18/17 17:42 MCV 96.2 fl (80-99) 06/18/17 17:42 MCH 31.6 pg (27.0-31.0) H 06/18/17 17:42 MCHC Differential 32.8 pg (28.0-36.0) 06/18/17 17:42 RDW 14.1 % (11.5-20.0) 06/18/17 17:42 Plt Count 118 Th/cmm (150-400) L 06/18/17 17:42 MPV 9.2 fl 06/18/17 17:42 Neutrophils % 63.3 % (40.0-80.0) 06/18/17 17:42 Lymphocytes % 26.0 % (20.0-50.0) 06/18/17 17:42 Monocytes % 7.5 % (2.0-10.0) 06/18/17 17:42 Eosinophils % 2.8 % (0.0-5.0) 06/18/17 17:42 Basophils % 0.4 % (0.0-2.0) 06/18/17 17:42 PT 10.1 SECONDS (9.5-11.5) 06/18/17 17:42 INR 0.97 (0.5-1.4) 06/18/17 17:42 PTT (Actin FS) 23.3 SECONDS (26.0-38.0) L 06/18/17 17:42 Sodium 150 mEq/L (136-145) H 06/18/17 17:42 Potassium 4.6 mEq/L (3.5-5.1) 08/07/17 17:42 Chloride 119 mEq/L (98-107) H 06/18/17 17:42 Carbon Dioxide 28.8 mEq/L (21.0-31.0) 06/18/17 17:42 Anion Gap 6.8 (7.0-16.0) L 06/18/17 17:42 BUN 52 mg/dL (7-25) H 06/18/17 17:42 Creatinine 1.5 mg/dL (0.7-1.3) H 06/18/17 17:42 Est GFR ( Amer) TNP 06/18/17 17:42 Est GFR (Non-Af Amer) TNP 06/18/17 17:42 BUN/Creatinine Ratio 34.7 06/18/17 17:42 Glucose 142 mg/dL (70-105) H 06/18/17 17:42 Calcium 10.3 mg/dL (8.6-10.3) 06/18/17 17:42 Total Bilirubin 0.3 mg/dL (0.3-1.0) 06/18/17 17:42 AST 28 U/L (13-39) 06/18/17 17:42 ALT 32 U/L (7-52) 06/18/17 17:42 Alkaline Phosphatase 43 U/L (34-104) 06/18/17 17:42 Troponin I 0.01 ng/mL (0.01-0.05) 06/18/17 17:42 Total Protein 7.0 gm/dL (6.0-8.3) 06/18/17 17:42 Albumin 4.3 gm/dL (4.2-5.5) 06/18/17 17:42 Globulin 2.7 gm/dL 06/18/17 17:42 Albumin/Globulin Ratio 1.6 (1.0-1.8) 06/18/17 17:42 Triglycerides 120 mg/dL (<150) 06/18/17 17:42 Cholesterol 192 mg/dL (<200) 06/18/17 17:42 LDL Cholesterol Direct 150 mg/dL (75-193) 06/18/17 17:42 HDL Cholesterol 46 mg/dL (23-92) 06/18/17 17:42 TSH 1.27 uIU/ml (0.34-5.60) 06/18/17 17:42 RPR NONREACTIVE (NONREACTIVE) 06/18/17 17:42 - Physical Exam Vitals and I&O: Vital Signs Temp 98.1 F 06/23/17 06:02 Pulse 53 06/23/17 06:02 Resp 20 06/23/17 06:02 BP 134/75 06/23/17 06:02 Pulse Ox 95 06/23/17 06:02 Intake & Output 06/22/17 06/23/17 06/23/17 18:59 06:59 18:59 Intake Total 800 480 Balance 800 480 Intake: Oral 800 480 Other: # Voids 2 1 Active Medications: Current Medications Acetaminophen (Tylenol) 650 mg PO Q4HR PRN PRN Reason: Mild Pain / Temp above 100 Stop: 08/17/17 22:02 Al Hydrox/Mg Hydrox/Simethicone (Maalox) 30 ml PO Q4HR PRN PRN Reason: GI DISTRESS Stop: 08/17/17 22:02 Aspirin (Aspirin Chewable) 81 mg PO DAILY [facility] Stop: 08/18/17 08:59 Last Admin: 06/22/17 09:03 Dose: 81 mg Bisacodyl (Dulcolax 10 Mg Supp) 10 mg RC Q72HR PRN PRN Reason: Constipation Stop: 08/17/17 22:14 Buspirone HCl (Buspar) 10 mg PO BID [facility] PRN Reason: Protocol Stop: 08/18/17 16:59 Last Admin: 06/22/17 17:15 Dose: 10 mg Clonazepam (Klonopin) 0.5 mg PO TID PRN; Protocol PRN Reason: Anxiety Stop: 08/18/17 13:59 Gabapentin (Neurontin) 100 mg PO QID [facility] Stop: 08/20/17 12:59 Last Admin: 06/22/17 21:29 Dose: 100 mg Magnesium Hydroxide (Milk Of Magnesia) 30 ml PO HS PRN PRN Reason: Constipation Multivitamins/Vitamin C (Theragran) 1 tab PO DAILY [facility] Stop: 08/18/17 08:59 Last Admin: 06/22/17 09:03 Dose: 1 tab Risperidone (Risperdal) 0.5 mg PO BID [facility] PRN Reason: Protocol Stop: 08/18/17 16:59 Last Admin: 06/22/17 17:16 Dose: 0.5 mg Sodium Phosphate (Fleet Enema) 135 ml RC Q72HR PRN PRN Reason: Constipation Stop: 08/17/17 22:14 Zolpidem Tartrate (Ambien) 5 mg PO HS PRN PRN Reason: Insomnia Stop: 08/17/17 22:02 Last Admin: 06/21/17 20:20 Dose: 5 mg General: Alert, No acute distress HEENT: Atraumatic, PERRLA, EOMI Neck: Supple Cardiovascular: Regular rate, Normal S1, Normal S2 Lungs: Clear to auscultation Abdomen: Bowel sounds, Soft Extremities: no Clubbing, no Cyanosis, no Edema Neurological: Normal gait, Normal speech Skin: no Rash Assessment/Plan - Problem List Patient Problems: All Active Problems Anemia (Acute) D64.9 Anxiety (Acute) F41.9 Dementia (Acute) F03.90 Elevated blood sugar (Acute) R73.9 Encephalopathy (Acute) G93.40 Hypernatremia (Acute) E87.0 INCREASED AGITATION AND LOWER LIP TRAUMA (Acute) Psychosis (Acute) F29 Renal insufficiency (Acute) Schizophrenia (Acute) F20.9 Weakness (Acute) - Assessment Assessment: Current Active Problems Problem Status Onset INCREASED AGITATION AND LOWER LIP TRAUMA Acute psychosis dementia schizophrenia anxiety disorder metabolic encephalopathy anemia muscle weakness renal insufficiency elevated blood sugar hypernatremia - Plan Plan: psychosis schizophrenia dementia encephalopathy anxiety disorder anemia weakness renal insufficiency with hypernatremia ... encourage PO fluids, will repeat BMP today, labwork still pending. Elevated blood sugar ... will order a HgA1c and accuchecks. labwork pending
[2017-06-23] MEDS: Multivitamin Tab PO SCH (09:56)
[2017-06-23] MEDS: Aspirin 81mg Chewable Tab PO SCH (09:56)
--- NOTE | 2017-06-23 20:31 | Progress Notes ---
DATE: 06/23/2017 The patient was seen, chart reviewed, and discussed with staff. The patient continues to be extremely confused, disoriented. Unable to answer questions in a coherent manner requiring numerous redirections. However, he has been eating and sleeping well. No observable side effects towards medications. We will continue to encourage the patient to participate in group and milieu therapy and adjust medications as needed. JOB# [id number]
--- NOTE | 2017-06-24 08:02 | General Progress Note ---
Subjective - Review of Systems Service Date: 06/24/17 Subjective: Awake, alert, afebrile. No new changes. Objective - Results Result Diagrams: 06/18/17 17:42 06/18/17 17:42 Recent Labs: Laboratory Last Values WBC 6.9 Th/cmm (4.8-10.8) 06/18/17 17:42 RBC 5.03 Mil/cmm (3.80-5.80) 06/18/17 17:42 Hgb 15.9 gm/dL (12.6-17.4) 06/18/17 17:42 Hct 48.4 % (39.0-49.0) 06/18/17 17:42 MCV 96.2 fl (80-99) 06/18/17 17:42 MCH 31.6 pg (27.0-31.0) H 06/18/17 17:42 MCHC Differential 32.8 pg (28.0-36.0) 06/18/17 17:42 RDW 14.1 % (11.5-20.0) 06/18/17 17:42 Plt Count 118 Th/cmm (150-400) L 06/18/17 17:42 MPV 9.2 fl 06/18/17 17:42 Neutrophils % 63.3 % (40.0-80.0) 06/18/17 17:42 Lymphocytes % 26.0 % (20.0-50.0) 06/18/17 17:42 Monocytes % 7.5 % (2.0-10.0) 06/18/17 17:42 Eosinophils % 2.8 % (0.0-5.0) 06/18/17 17:42 Basophils % 0.4 % (0.0-2.0) 06/18/17 17:42 PT 10.1 SECONDS (9.5-11.5) 06/18/17 17:42 INR 0.97 (0.5-1.4) 06/18/17 17:42 PTT (Actin FS) 23.3 SECONDS (26.0-38.0) L 06/18/17 17:42 Sodium 150 mEq/L (136-145) H 06/18/17 17:42 Potassium 4.6 mEq/L (3.5-5.1) 08/07/17 17:42 Chloride 119 mEq/L (98-107) H 06/18/17 17:42 Carbon Dioxide 28.8 mEq/L (21.0-31.0) 06/18/17 17:42 Anion Gap 6.8 (7.0-16.0) L 06/18/17 17:42 BUN 52 mg/dL (7-25) H 06/18/17 17:42 Creatinine 1.5 mg/dL (0.7-1.3) H 06/18/17 17:42 Est GFR ( Amer) TNP 06/18/17 17:42 Est GFR (Non-Af Amer) TNP 06/18/17 17:42 BUN/Creatinine Ratio 34.7 06/18/17 17:42 Glucose 142 mg/dL (70-105) H 06/18/17 17:42 Calcium 10.3 mg/dL (8.6-10.3) 06/18/17 17:42 Total Bilirubin 0.3 mg/dL (0.3-1.0) 06/18/17 17:42 AST 28 U/L (13-39) 06/18/17 17:42 ALT 32 U/L (7-52) 06/18/17 17:42 Alkaline Phosphatase 43 U/L (34-104) 06/18/17 17:42 Troponin I 0.01 ng/mL (0.01-0.05) 06/18/17 17:42 Total Protein 7.0 gm/dL (6.0-8.3) 06/18/17 17:42 Albumin 4.3 gm/dL (4.2-5.5) 06/18/17 17:42 Globulin 2.7 gm/dL 06/18/17 17:42 Albumin/Globulin Ratio 1.6 (1.0-1.8) 06/18/17 17:42 Triglycerides 120 mg/dL (<150) 06/18/17 17:42 Cholesterol 192 mg/dL (<200) 06/18/17 17:42 LDL Cholesterol Direct 150 mg/dL (75-193) 06/18/17 17:42 HDL Cholesterol 46 mg/dL (23-92) 06/18/17 17:42 TSH 1.27 uIU/ml (0.34-5.60) 06/18/17 17:42 RPR NONREACTIVE (NONREACTIVE) 06/18/17 17:42 - Physical Exam Vitals and I&O: Vital Signs Temp 97.1 F 06/24/17 06:49 Pulse 65 06/24/17 06:49 Resp 19 06/24/17 06:49 BP 130/69 06/24/17 06:49 Pulse Ox 96 06/24/17 06:49 Intake & Output 06/23/17 06/24/17 06/24/17 18:59 06:59 18:59 Intake Total 120 Balance 120 Intake: Oral 120 Other: # Voids 3 Active Medications: Current Medications Acetaminophen (Tylenol) 650 mg PO Q4HR PRN PRN Reason: Mild Pain / Temp above 100 Stop: 08/17/17 22:02 Al Hydrox/Mg Hydrox/Simethicone (Maalox) 30 ml PO Q4HR PRN PRN Reason: GI DISTRESS Stop: 08/17/17 22:02 Aspirin (Aspirin Chewable) 81 mg PO DAILY [facility] Stop: 08/18/17 08:59 Last Admin: 06/23/17 09:56 Dose: 81 mg Bisacodyl (Dulcolax 10 Mg Supp) 10 mg RC Q72HR PRN PRN Reason: Constipation Stop: 08/17/17 22:14 Buspirone HCl (Buspar) 10 mg PO BID [facility] PRN Reason: Protocol Stop: 08/18/17 16:59 Last Admin: 06/23/17 16:56 Dose: 10 mg Clonazepam (Klonopin) 0.5 mg PO TID PRN; Protocol PRN Reason: Anxiety Stop: 08/18/17 13:59 Gabapentin (Neurontin) 100 mg PO QID [facility] Stop: 08/20/17 12:59 Last Admin: 06/23/17 21:06 Dose: 100 mg Magnesium Hydroxide (Milk Of Magnesia) 30 ml PO HS PRN PRN Reason: Constipation Multivitamins/Vitamin C (Theragran) 1 tab PO DAILY [facility] Stop: 08/18/17 08:59 Last Admin: 06/23/17 09:56 Dose: 1 tab Risperidone (Risperdal) 0.5 mg PO BID CHRISTOPHER PRN Reason: Protocol Stop: 08/18/17 16:59 Last Admin: 06/23/17 16:56 Dose: 0.5 mg Sodium Phosphate (Fleet Enema) 135 ml RC Q72HR PRN PRN Reason: Constipation Stop: 08/17/17 22:14 Zolpidem Tartrate (Ambien) 5 mg PO HS PRN PRN Reason: Insomnia Stop: 08/17/17 22:02 Last Admin: 06/21/17 20:20 Dose: 5 mg General: Alert, No acute distress HEENT: Atraumatic, PERRLA, EOMI Neck: Supple Cardiovascular: Regular rate, Normal S1, Normal S2 Lungs: Clear to auscultation Abdomen: Bowel sounds, Soft Extremities: no Clubbing, no Cyanosis, no Edema Neurological: Normal gait, Normal speech Skin: no Rash Assessment/Plan - Problem List Patient Problems: All Active Problems Anemia (Acute) D64.9 Anxiety (Acute) F41.9 Dementia (Acute) F03.90 Elevated blood sugar (Acute) R73.9 Encephalopathy (Acute) G93.40 Hypernatremia (Acute) E87.0 INCREASED AGITATION AND LOWER LIP TRAUMA (Acute) Psychosis (Acute) F29 Renal insufficiency (Acute) Schizophrenia (Acute) F20.9 Weakness (Acute) - Assessment Assessment: Current Active Problems Problem Status Onset INCREASED AGITATION AND LOWER LIP TRAUMA Acute psychosis dementia schizophrenia anxiety disorder metabolic encephalopathy anemia muscle weakness renal insufficiency elevated blood sugar hypernatremia - Plan Plan: psychosis schizophrenia dementia encephalopathy anxiety disorder anemia weakness renal insufficiency with hypernatremia ... encourage PO fluids, will repeat BMP today, labwork still pending. Elevated blood sugar ... will order a HgA1c and accuchecks. labwork pending Nutritional Asmnt/Malnutr-PDOC - Dietary Evaluation Malnutrition Findings (Please click <Entered> for more info): Nutritional Asmnt/Malnutrition Start: 06/23/17 10: 24 Text: Status: Complete Freq: Document 06/23/17 10:24 KEYUR (Rec: 06/23/17 10:30 KEYUR [email or web address]) Nutritional Asmnt/Malnutrition Patient General Information Nutritional Screening Moderate Risk Screening Diagnosis Psychosis Pertinent Medical Hx/Surgical Hx schizophrenia Subjective Information Pt did not answer RD questions appropriately. Current Diet Order/ Nutrition Support mechanical soft ground Patient / S.O Can't verbalize diet edu Pertinent Medications maalox, bisacodyl, MOM, theragran, fleet enema Pertinent Labs labs from 06/18/17: Na 150, K 4. 6, Cl 119, CO2 28.8, BUN 52, Cr 1.5, Ca 10.3, glucose 142 Nutritional Hx/Data Height 1.78 m Height (Calculated Centimeters) 177.8 Current Weight (lbs) 70.307 kg Weight (Calculated Kilograms) 70.3 Weight (Calculated Grams) 28538.8 Recent Weight Change No Weight Status Approriate GI Symptoms Difficult in: Chewing Food Allergies No Cultural/Ethnic/Congregation Belief none noted Usual diet at home mechanical soft Skin Integrity/Comment: sabrina score 14 Current %PO Good (75-100%) Estimated Nutritional Goals BEE in Kcals: Using Current wt Calories/Kcals/Kg 25-30kcals/kg Kcals Calculated 1750-2100kcals/day Protein: Using Current wt Protein g/k-1.2g/kg Protein Calculated 70-84g/day Fluid: ml 1750-2100ml/day (1ml/kcal) Nutritional Problem 1. Problem Problem No nutrition diangosis at this time Intervention/Recommendation Comments Recommend continuing mechanical soft ground diet Expected Outcomes/Goals Expected Outcomes/Goals PO intake >75%
[2017-06-24] MEDS: Aspirin 81mg Chewable Tab PO SCH (10:00)
[2017-06-24] MEDS: Multivitamin Tab PO SCH (10:00)
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
--- NOTE | 2017-06-25 08:27 | General Progress Note ---
Subjective - Review of Systems Service Date: 06/25/17 Subjective: Awake, alert, afebrile. No new changes. Objective - Results Result Diagrams: 06/18/17 17:42 06/18/17 17:42 Recent Labs: Laboratory Last Values WBC 6.9 Th/cmm (4.8-10.8) 06/18/17 17:42 RBC 5.03 Mil/cmm (3.80-5.80) 06/18/17 17:42 Hgb 15.9 gm/dL (12.6-17.4) 06/18/17 17:42 Hct 48.4 % (39.0-49.0) 06/18/17 17:42 MCV 96.2 fl (80-99) 06/18/17 17:42 MCH 31.6 pg (27.0-31.0) H 06/18/17 17:42 MCHC Differential 32.8 pg (28.0-36.0) 06/18/17 17:42 RDW 14.1 % (11.5-20.0) 06/18/17 17:42 Plt Count 118 Th/cmm (150-400) L 06/18/17 17:42 MPV 9.2 fl 06/18/17 17:42 Neutrophils % 63.3 % (40.0-80.0) 06/18/17 17:42 Lymphocytes % 26.0 % (20.0-50.0) 06/18/17 17:42 Monocytes % 7.5 % (2.0-10.0) 06/18/17 17:42 Eosinophils % 2.8 % (0.0-5.0) 06/18/17 17:42 Basophils % 0.4 % (0.0-2.0) 06/18/17 17:42 PT 10.1 SECONDS (9.5-11.5) 06/18/17 17:42 INR 0.97 (0.5-1.4) 06/18/17 17:42 PTT (Actin FS) 23.3 SECONDS (26.0-38.0) L 06/18/17 17:42 Sodium 150 mEq/L (136-145) H 06/18/17 17:42 Potassium 4.6 mEq/L (3.5-5.1) 08/07/17 17:42 Chloride 119 mEq/L (98-107) H 06/18/17 17:42 Carbon Dioxide 28.8 mEq/L (21.0-31.0) 06/18/17 17:42 Anion Gap 6.8 (7.0-16.0) L 06/18/17 17:42 BUN 52 mg/dL (7-25) H 06/18/17 17:42 Creatinine 1.5 mg/dL (0.7-1.3) H 06/18/17 17:42 Est GFR ( Amer) TNP 06/18/17 17:42 Est GFR (Non-Af Amer) TNP 06/18/17 17:42 BUN/Creatinine Ratio 34.7 06/18/17 17:42 Glucose 142 mg/dL (70-105) H 06/18/17 17:42 Calcium 10.3 mg/dL (8.6-10.3) 06/18/17 17:42 Total Bilirubin 0.3 mg/dL (0.3-1.0) 06/18/17 17:42 AST 28 U/L (13-39) 06/18/17 17:42 ALT 32 U/L (7-52) 06/18/17 17:42 Alkaline Phosphatase 43 U/L (34-104) 06/18/17 17:42 Troponin I 0.01 ng/mL (0.01-0.05) 06/18/17 17:42 Total Protein 7.0 gm/dL (6.0-8.3) 06/18/17 17:42 Albumin 4.3 gm/dL (4.2-5.5) 06/18/17 17:42 Globulin 2.7 gm/dL 06/18/17 17:42 Albumin/Globulin Ratio 1.6 (1.0-1.8) 06/18/17 17:42 Triglycerides 120 mg/dL (<150) 06/18/17 17:42 Cholesterol 192 mg/dL (<200) 06/18/17 17:42 LDL Cholesterol Direct 150 mg/dL (75-193) 06/18/17 17:42 HDL Cholesterol 46 mg/dL (23-92) 06/18/17 17:42 TSH 1.27 uIU/ml (0.34-5.60) 06/18/17 17:42 RPR NONREACTIVE (NONREACTIVE) 06/18/17 17:42 - Physical Exam Vitals and I&O: Vital Signs Temp 97.9 F 06/25/17 05:32 Pulse 65 06/25/17 05:32 Resp 18 06/25/17 05:32 BP 117/68 06/25/17 05:32 Pulse Ox 98 06/25/17 05:32 Intake & Output 06/24/17 06/25/17 06/25/17 18:59 06:59 18:59 Intake Total 600 Balance 600 Intake: Oral 600 Other: # Voids 3 2 # Bowel Movements 1 0 Active Medications: Current Medications Acetaminophen (Tylenol) 650 mg PO Q4HR PRN PRN Reason: Mild Pain / Temp above 100 Stop: 08/17/17 22:02 Al Hydrox/Mg Hydrox/Simethicone (Maalox) 30 ml PO Q4HR PRN PRN Reason: GI DISTRESS Stop: 08/17/17 22:02 Aspirin (Aspirin Chewable) 81 mg PO DAILY [facility] Stop: 08/18/17 08:59 Last Admin: 06/24/17 10:00 Dose: 81 mg Bisacodyl (Dulcolax 10 Mg Supp) 10 mg RC Q72HR PRN PRN Reason: Constipation Stop: 08/17/17 22:14 Buspirone HCl (Buspar) 10 mg PO BID [facility] PRN Reason: Protocol Stop: 08/18/17 16:59 Last Admin: 06/24/17 17:21 Dose: 10 mg Clonazepam (Klonopin) 0.5 mg PO TID PRN; Protocol PRN Reason: Anxiety Stop: 08/18/17 13:59 Last Admin: 06/24/17 17:21 Dose: 0.5 mg Gabapentin (Neurontin) 100 mg PO QID [facility] Stop: 08/20/17 12:59 Last Admin: 06/24/17 20:38 Dose: 100 mg Magnesium Hydroxide (Milk Of Magnesia) 30 ml PO HS PRN PRN Reason: Constipation Multivitamins/Vitamin C (Theragran) 1 tab PO DAILY [facility] Stop: 08/18/17 08:59 Last Admin: 06/24/17 10:00 Dose: 1 tab Risperidone (Risperdal) 0.5 mg PO BID [facility] PRN Reason: Protocol Stop: 08/18/17 16:59 Last Admin: 06/24/17 17:21 Dose: 0.5 mg Sodium Phosphate (Fleet Enema) 135 ml RC Q72HR PRN PRN Reason: Constipation Stop: 08/17/17 22:14 Zolpidem Tartrate (Ambien) 5 mg PO HS PRN PRN Reason: Insomnia Stop: 08/17/17 22:02 Last Admin: 06/24/17 20:38 Dose: 5 mg General: Alert, No acute distress HEENT: Atraumatic, PERRLA, EOMI Neck: Supple Cardiovascular: Regular rate, Normal S1, Normal S2 Lungs: Clear to auscultation Abdomen: Bowel sounds, Soft Extremities: no Clubbing, no Cyanosis, no Edema Neurological: Normal gait, Normal speech Skin: no Rash Assessment/Plan - Problem List Patient Problems: All Active Problems Anemia (Acute) D64.9 Anxiety (Acute) F41.9 Dementia (Acute) F03.90 Elevated blood sugar (Acute) R73.9 Encephalopathy (Acute) G93.40 Hypernatremia (Acute) E87.0 INCREASED AGITATION AND LOWER LIP TRAUMA (Acute) Psychosis (Acute) F29 Renal insufficiency (Acute) Schizophrenia (Acute) F20.9 Weakness (Acute) - Assessment Assessment: Current Active Problems Problem Status Onset INCREASED AGITATION AND LOWER LIP TRAUMA Acute psychosis dementia schizophrenia anxiety disorder metabolic encephalopathy anemia muscle weakness renal insufficiency elevated blood sugar hypernatremia - Plan Plan: psychosis schizophrenia dementia encephalopathy anxiety disorder anemia weakness renal insufficiency with hypernatremia ... encourage PO fluids, will repeat BMP today, labwork still pending. Elevated blood sugar ... will order a HgA1c and accuchecks. labwork pending Nutritional Asmnt/Malnutr-PDOC - Dietary Evaluation Malnutrition Findings (Please click <Entered> for more info): Nutritional Asmnt/Malnutrition Start: 06/23/17 10: 24 Text: Status: Complete Freq: Document 06/23/17 10:24 KEYUR (Rec: 06/23/17 10:30 KEYUR MCCULLOUGH) Nutritional Asmnt/Malnutrition Patient General Information Nutritional Screening Moderate Risk Screening Diagnosis Psychosis Pertinent Medical Hx/Surgical Hx schizophrenia Subjective Information Pt did not answer RD questions appropriately. Current Diet Order/ Nutrition Support mechanical soft ground Patient / S.O Can't verbalize diet edu Pertinent Medications maalox, bisacodyl, MOM, theragran, fleet enema Pertinent Labs labs from 06/18/17: Na 150, K 4. 6, Cl 119, CO2 28.8, BUN 52, Cr 1.5, Ca 10.3, glucose 142 Nutritional Hx/Data Height 1.78 m Height (Calculated Centimeters) 177.8 Current Weight (lbs) 70.307 kg Weight (Calculated Kilograms) 70.3 Weight (Calculated Grams) 12397.8 Recent Weight Change No Weight Status Approriate GI Symptoms Difficult in: Chewing Food Allergies No Cultural/Ethnic/Yazdanism Belief none noted Usual diet at home mechanical soft Skin Integrity/Comment: sabrina score 14 Current %PO Good (75-100%) Estimated Nutritional Goals BEE in Kcals: Using Current wt Calories/Kcals/Kg 25-30kcals/kg Kcals Calculated 1750-2100kcals/day Protein: Using Current wt Protein g/k-1.2g/kg Protein Calculated 70-84g/day Fluid: ml 1750-2100ml/day (1ml/kcal) Nutritional Problem 1. Problem Problem No nutrition diangosis at this time Intervention/Recommendation Comments Recommend continuing mechanical soft ground diet Expected Outcomes/Goals Expected Outcomes/Goals PO intake >75%
[2017-06-25] MEDS: Aspirin 81mg Chewable Tab PO SCH (09:00)
[2017-06-25] MEDS: Multivitamin Tab PO SCH (09:01)
--- NOTE | 2017-06-25 21:17 | Progress Notes ---
DATE: 06/25/2017 SUBJECTIVE: Case was discussed with staff of the patient, reviewed records. The patient continues to be irritable, continues to be confused, continues to have poor insight. Unable to make safe plan for self-care, unpredictable, impulsive, needing redirection and unable to say any words, rarely saying anything. No side effects with the medication, no sedation, no nausea, no extrapyramidal symptoms. We will continue to work with the patient in group therapy, milieu therapy, and adjust medications as needed. JOB# [id number]
--- NOTE | 2017-06-26 08:33 | General Progress Note ---
Subjective - Review of Systems Service Date: 06/26/17 Subjective: Awake, alert, afebrile. No new changes. Objective - Results Result Diagrams: 06/18/17 17:42 06/18/17 17:42 Recent Labs: Laboratory Last Values WBC 6.9 Th/cmm (4.8-10.8) 06/18/17 17:42 RBC 5.03 Mil/cmm (3.80-5.80) 06/18/17 17:42 Hgb 15.9 gm/dL (12.6-17.4) 06/18/17 17:42 Hct 48.4 % (39.0-49.0) 06/18/17 17:42 MCV 96.2 fl (80-99) 06/18/17 17:42 MCH 31.6 pg (27.0-31.0) H 06/18/17 17:42 MCHC Differential 32.8 pg (28.0-36.0) 06/18/17 17:42 RDW 14.1 % (11.5-20.0) 06/18/17 17:42 Plt Count 118 Th/cmm (150-400) L 06/18/17 17:42 MPV 9.2 fl 06/18/17 17:42 Neutrophils % 63.3 % (40.0-80.0) 06/18/17 17:42 Lymphocytes % 26.0 % (20.0-50.0) 06/18/17 17:42 Monocytes % 7.5 % (2.0-10.0) 06/18/17 17:42 Eosinophils % 2.8 % (0.0-5.0) 06/18/17 17:42 Basophils % 0.4 % (0.0-2.0) 06/18/17 17:42 PT 10.1 SECONDS (9.5-11.5) 06/18/17 17:42 INR 0.97 (0.5-1.4) 06/18/17 17:42 PTT (Actin FS) 23.3 SECONDS (26.0-38.0) L 06/18/17 17:42 Sodium 150 mEq/L (136-145) H 06/18/17 17:42 Potassium 4.6 mEq/L (3.5-5.1) 08/07/17 17:42 Chloride 119 mEq/L (98-107) H 06/18/17 17:42 Carbon Dioxide 28.8 mEq/L (21.0-31.0) 06/18/17 17:42 Anion Gap 6.8 (7.0-16.0) L 06/18/17 17:42 BUN 52 mg/dL (7-25) H 06/18/17 17:42 Creatinine 1.5 mg/dL (0.7-1.3) H 06/18/17 17:42 Est GFR ( Amer) TNP 06/18/17 17:42 Est GFR (Non-Af Amer) TNP 06/18/17 17:42 BUN/Creatinine Ratio 34.7 06/18/17 17:42 Glucose 142 mg/dL (70-105) H 06/18/17 17:42 Calcium 10.3 mg/dL (8.6-10.3) 06/18/17 17:42 Total Bilirubin 0.3 mg/dL (0.3-1.0) 06/18/17 17:42 AST 28 U/L (13-39) 06/18/17 17:42 ALT 32 U/L (7-52) 06/18/17 17:42 Alkaline Phosphatase 43 U/L (34-104) 06/18/17 17:42 Troponin I 0.01 ng/mL (0.01-0.05) 06/18/17 17:42 Total Protein 7.0 gm/dL (6.0-8.3) 06/18/17 17:42 Albumin 4.3 gm/dL (4.2-5.5) 06/18/17 17:42 Globulin 2.7 gm/dL 06/18/17 17:42 Albumin/Globulin Ratio 1.6 (1.0-1.8) 06/18/17 17:42 Triglycerides 120 mg/dL (<150) 06/18/17 17:42 Cholesterol 192 mg/dL (<200) 06/18/17 17:42 LDL Cholesterol Direct 150 mg/dL (75-193) 06/18/17 17:42 HDL Cholesterol 46 mg/dL (23-92) 06/18/17 17:42 TSH 1.27 uIU/ml (0.34-5.60) 06/18/17 17:42 RPR NONREACTIVE (NONREACTIVE) 06/18/17 17:42 - Physical Exam Vitals and I&O: Vital Signs Temp 98.4 F 06/26/17 05:51 Pulse 69 06/26/17 05:51 Resp 18 06/26/17 05:51 BP 144/90 06/26/17 05:51 Pulse Ox 95 06/26/17 05:51 Intake & Output 06/25/17 06/26/17 06/26/17 18:59 06:59 18:59 Intake Total 700 160 Balance 700 160 Intake: Oral 700 160 Other: # Voids 3 1 # Bowel Movements 1 0 Active Medications: Current Medications Acetaminophen (Tylenol) 650 mg PO Q4HR PRN PRN Reason: Mild Pain / Temp above 100 Stop: 08/17/17 22:02 Al Hydrox/Mg Hydrox/Simethicone (Maalox) 30 ml PO Q4HR PRN PRN Reason: GI DISTRESS Stop: 08/17/17 22:02 Aspirin (Aspirin Chewable) 81 mg PO DAILY [facility] Stop: 08/18/17 08:59 Last Admin: 06/25/17 09:00 Dose: 81 mg Bisacodyl (Dulcolax 10 Mg Supp) 10 mg RC Q72HR PRN PRN Reason: Constipation Stop: 08/17/17 22:14 Buspirone HCl (Buspar) 10 mg PO BID [facility] PRN Reason: Protocol Stop: 08/18/17 16:59 Last Admin: 06/25/17 17:11 Dose: 10 mg Clonazepam (Klonopin) 0.5 mg PO TID PRN; Protocol PRN Reason: Anxiety Stop: 08/18/17 13:59 Last Admin: 06/24/17 17:21 Dose: 0.5 mg Gabapentin (Neurontin) 100 mg PO QID [facility] Stop: 08/20/17 12:59 Last Admin: 06/25/17 20:12 Dose: 100 mg Magnesium Hydroxide (Milk Of Magnesia) 30 ml PO HS PRN PRN Reason: Constipation Multivitamins/Vitamin C (Theragran) 1 tab PO DAILY [facility] Stop: 08/18/17 08:59 Last Admin: 06/25/17 09:01 Dose: 1 tab Risperidone (Risperdal) 0.5 mg PO BID [facility] PRN Reason: Protocol Stop: 08/18/17 16:59 Last Admin: 06/25/17 17:10 Dose: 0.5 mg Sodium Phosphate (Fleet Enema) 135 ml RC Q72HR PRN PRN Reason: Constipation Stop: 08/17/17 22:14 Zolpidem Tartrate (Ambien) 5 mg PO HS PRN PRN Reason: Insomnia Stop: 08/17/17 22:02 Last Admin: 06/25/17 20:11 Dose: 5 mg General: Alert, No acute distress HEENT: Atraumatic, PERRLA, EOMI Neck: Supple Cardiovascular: Regular rate, Normal S1, Normal S2 Lungs: Clear to auscultation Abdomen: Bowel sounds, Soft Extremities: no Clubbing, no Cyanosis, no Edema Neurological: Normal gait, Normal speech Skin: no Rash Assessment/Plan - Problem List Patient Problems: All Active Problems Anemia (Acute) D64.9 Anxiety (Acute) F41.9 Dementia (Acute) F03.90 Elevated blood sugar (Acute) R73.9 Encephalopathy (Acute) G93.40 Hypernatremia (Acute) E87.0 INCREASED AGITATION AND LOWER LIP TRAUMA (Acute) Psychosis (Acute) F29 Renal insufficiency (Acute) Schizophrenia (Acute) F20.9 Weakness (Acute) - Assessment Assessment: Current Active Problems Problem Status Onset INCREASED AGITATION AND LOWER LIP TRAUMA Acute psychosis dementia schizophrenia anxiety disorder metabolic encephalopathy anemia muscle weakness renal insufficiency elevated blood sugar hypernatremia - Plan Plan: psychosis schizophrenia dementia encephalopathy anxiety disorder anemia weakness renal insufficiency with hypernatremia ... encourage PO fluids, will repeat BMP today, labwork still pending. Elevated blood sugar ... will order a HgA1c and accuchecks. labwork pending Nutritional Asmnt/Malnutr-PDOC - Dietary Evaluation Malnutrition Findings (Please click <Entered> for more info): Nutritional Asmnt/Malnutrition Start: 06/23/17 10: 24 Text: Status: Complete Freq: Document 06/23/17 10:24 KEYUR (Rec: 06/23/17 10:30 KEYUR MCCULLOUGH) Nutritional Asmnt/Malnutrition Patient General Information Nutritional Screening Moderate Risk Screening Diagnosis Psychosis Pertinent Medical Hx/Surgical Hx schizophrenia Subjective Information Pt did not answer RD questions appropriately. Current Diet Order/ Nutrition Support mechanical soft ground Patient / S.O Can't verbalize diet edu Pertinent Medications maalox, bisacodyl, MOM, theragran, fleet enema Pertinent Labs labs from 06/18/17: Na 150, K 4. 6, Cl 119, CO2 28.8, BUN 52, Cr 1.5, Ca 10.3, glucose 142 Nutritional Hx/Data Height 1.78 m Height (Calculated Centimeters) 177.8 Current Weight (lbs) 70.307 kg Weight (Calculated Kilograms) 70.3 Weight (Calculated Grams) 35680.8 Recent Weight Change No Weight Status Approriate GI Symptoms Difficult in: Chewing Food Allergies No Cultural/Ethnic/Lutheran Belief none noted Usual diet at home mechanical soft Skin Integrity/Comment: sabrina score 14 Current %PO Good (75-100%) Estimated Nutritional Goals BEE in Kcals: Using Current wt Calories/Kcals/Kg 25-30kcals/kg Kcals Calculated 1750-2100kcals/day Protein: Using Current wt Protein g/k-1.2g/kg Protein Calculated 70-84g/day Fluid: ml 1750-2100ml/day (1ml/kcal) Nutritional Problem 1. Problem Problem No nutrition diangosis at this time Intervention/Recommendation Comments Recommend continuing mechanical soft ground diet Expected Outcomes/Goals Expected Outcomes/Goals PO intake >75%
[2017-06-26] MEDS: Aspirin 81mg Chewable Tab PO SCH (08:53)
[2017-06-26] MEDS: Multivitamin Tab PO SCH (08:53)
--- NOTE | 2017-06-26 22:31 | Progress Notes ---
DATE: 06/26/2017 SUBJECTIVE: Case was discussed with staff of the patient, reviewed records. The patient continues to be confused, demented, unpredictable, impulsive, needing redirection; however, he is able to feed himself sleeping better. Decreased acting out behavior , agitation, irritability, no side effects with the medication, no sedation, no nausea, no extrapyramidal symptoms. We will continue to work with the patient in group therapy, milieu therapy, and adjust medication as needed. His lab work showed high sodium level and high blood sugar, high BUN, high creatinine, for which I will be consulting with the medical doctor regarding those abnormal lab work and also CBC showed low platelets and high MCH. The rest within normal range. Lipid panel within normal range. We will continue to work with the patient in group therapy, milieu therapy, and adjust medication as needed. JOB# [id number]
--- NOTE | 2017-06-27 08:28 | General Progress Note ---
Subjective - Review of Systems Service Date: 06/27/17 Subjective: Awake, alert, afebrile. No new changes. Objective - Results Result Diagrams: 06/18/17 17:42 06/18/17 17:42 Recent Labs: Laboratory Last Values WBC 6.9 Th/cmm (4.8-10.8) 06/18/17 17:42 RBC 5.03 Mil/cmm (3.80-5.80) 06/18/17 17:42 Hgb 15.9 gm/dL (12.6-17.4) 06/18/17 17:42 Hct 48.4 % (39.0-49.0) 06/18/17 17:42 MCV 96.2 fl (80-99) 06/18/17 17:42 MCH 31.6 pg (27.0-31.0) H 06/18/17 17:42 MCHC Differential 32.8 pg (28.0-36.0) 06/18/17 17:42 RDW 14.1 % (11.5-20.0) 06/18/17 17:42 Plt Count 118 Th/cmm (150-400) L 06/18/17 17:42 MPV 9.2 fl 06/18/17 17:42 Neutrophils % 63.3 % (40.0-80.0) 06/18/17 17:42 Lymphocytes % 26.0 % (20.0-50.0) 06/18/17 17:42 Monocytes % 7.5 % (2.0-10.0) 06/18/17 17:42 Eosinophils % 2.8 % (0.0-5.0) 06/18/17 17:42 Basophils % 0.4 % (0.0-2.0) 06/18/17 17:42 PT 10.1 SECONDS (9.5-11.5) 06/18/17 17:42 INR 0.97 (0.5-1.4) 06/18/17 17:42 PTT (Actin FS) 23.3 SECONDS (26.0-38.0) L 06/18/17 17:42 Sodium 150 mEq/L (136-145) H 06/18/17 17:42 Potassium 4.6 mEq/L (3.5-5.1) 08/07/17 17:42 Chloride 119 mEq/L (98-107) H 06/18/17 17:42 Carbon Dioxide 28.8 mEq/L (21.0-31.0) 06/18/17 17:42 Anion Gap 6.8 (7.0-16.0) L 06/18/17 17:42 BUN 52 mg/dL (7-25) H 06/18/17 17:42 Creatinine 1.5 mg/dL (0.7-1.3) H 06/18/17 17:42 Est GFR ( Amer) TNP 06/18/17 17:42 Est GFR (Non-Af Amer) TNP 06/18/17 17:42 BUN/Creatinine Ratio 34.7 06/18/17 17:42 Glucose 142 mg/dL (70-105) H 06/18/17 17:42 Calcium 10.3 mg/dL (8.6-10.3) 06/18/17 17:42 Total Bilirubin 0.3 mg/dL (0.3-1.0) 06/18/17 17:42 AST 28 U/L (13-39) 06/18/17 17:42 ALT 32 U/L (7-52) 06/18/17 17:42 Alkaline Phosphatase 43 U/L (34-104) 06/18/17 17:42 Troponin I 0.01 ng/mL (0.01-0.05) 06/18/17 17:42 Total Protein 7.0 gm/dL (6.0-8.3) 06/18/17 17:42 Albumin 4.3 gm/dL (4.2-5.5) 06/18/17 17:42 Globulin 2.7 gm/dL 06/18/17 17:42 Albumin/Globulin Ratio 1.6 (1.0-1.8) 06/18/17 17:42 Triglycerides 120 mg/dL (<150) 06/18/17 17:42 Cholesterol 192 mg/dL (<200) 06/18/17 17:42 LDL Cholesterol Direct 150 mg/dL (75-193) 06/18/17 17:42 HDL Cholesterol 46 mg/dL (23-92) 06/18/17 17:42 TSH 1.27 uIU/ml (0.34-5.60) 06/18/17 17:42 RPR NONREACTIVE (NONREACTIVE) 06/18/17 17:42 - Physical Exam Vitals and I&O: Vital Signs Temp 97.8 F 06/27/17 06:28 Pulse 53 06/27/17 06:28 Resp 20 06/27/17 06:28 BP 110/64 06/27/17 06:28 Pulse Ox 98 06/27/17 06:28 Intake & Output 06/26/17 06/27/17 06/27/17 18:59 06:59 18:59 Intake Total 800 240 Output Total 1 Balance 800 239 Weight (lbs) 70.307 kg Intake: Oral 800 240 Output: Urine/Stool Mix 1 Other: # Voids 4 4 # Bowel Movements 1 0 Active Medications: Current Medications Acetaminophen (Tylenol) 650 mg PO Q4HR PRN PRN Reason: Mild Pain / Temp above 100 Stop: 08/17/17 22:02 Al Hydrox/Mg Hydrox/Simethicone (Maalox) 30 ml PO Q4HR PRN PRN Reason: GI DISTRESS Stop: 08/17/17 22:02 Aspirin (Aspirin Chewable) 81 mg PO DAILY [facility] Stop: 08/18/17 08:59 Last Admin: 06/26/17 08:53 Dose: 81 mg Bisacodyl (Dulcolax 10 Mg Supp) 10 mg RC Q72HR PRN PRN Reason: Constipation Stop: 08/17/17 22:14 Buspirone HCl (Buspar) 10 mg PO BID [facility] PRN Reason: Protocol Stop: 08/18/17 16:59 Last Admin: 06/26/17 16:47 Dose: 10 mg Clonazepam (Klonopin) 0.5 mg PO TID PRN; Protocol PRN Reason: Anxiety Stop: 08/18/17 13:59 Last Admin: 06/26/17 20:24 Dose: 0.5 mg Gabapentin (Neurontin) 100 mg PO QID [facility] Stop: 08/20/17 12:59 Last Admin: 06/26/17 20:24 Dose: 100 mg Magnesium Hydroxide (Milk Of Magnesia) 30 ml PO HS PRN PRN Reason: Constipation Multivitamins/Vitamin C (Theragran) 1 tab PO DAILY [facility] Stop: 08/18/17 08:59 Last Admin: 06/26/17 08:53 Dose: 1 tab Risperidone (Risperdal) 0.5 mg PO BID [facility] PRN Reason: Protocol Stop: 08/18/17 16:59 Last Admin: 06/26/17 16:48 Dose: 0.5 mg Sodium Phosphate (Fleet Enema) 135 ml RC Q72HR PRN PRN Reason: Constipation Stop: 08/17/17 22:14 General: Alert, No acute distress HEENT: Atraumatic, PERRLA, EOMI Neck: Supple Cardiovascular: Regular rate, Normal S1, Normal S2 Lungs: Clear to auscultation Abdomen: Bowel sounds, Soft Extremities: no Clubbing, no Cyanosis, no Edema Neurological: Normal gait, Normal speech Skin: no Rash Assessment/Plan - Problem List Patient Problems: All Active Problems Anemia (Acute) D64.9 Anxiety (Acute) F41.9 Dementia (Acute) F03.90 Elevated blood sugar (Acute) R73.9 Encephalopathy (Acute) G93.40 Hypernatremia (Acute) E87.0 INCREASED AGITATION AND LOWER LIP TRAUMA (Acute) Psychosis (Acute) F29 Renal insufficiency (Acute) Schizophrenia (Acute) F20.9 Weakness (Acute) - Assessment Assessment: Current Active Problems Problem Status Onset INCREASED AGITATION AND LOWER LIP TRAUMA Acute psychosis dementia schizophrenia anxiety disorder metabolic encephalopathy anemia muscle weakness renal insufficiency elevated blood sugar hypernatremia - Plan Plan: psychosis schizophrenia dementia encephalopathy anxiety disorder anemia weakness renal insufficiency with hypernatremia ... encourage PO fluids, will repeat BMP today, labwork still pending. Ordered labwork on 06/22/2017. will reorder labwork again today. Elevated blood sugar ... will order a HgA1c and accuchecks. labwork pending Nutritional Asmnt/Malnutr-PDOC - Dietary Evaluation Malnutrition Findings (Please click <Entered> for more info): Nutritional Asmnt/Malnutrition Start: 06/23/17 10: 24 Text: Status: Complete Freq: Document 06/23/17 10:24 KEYUR (Rec: 06/23/17 10:30 KEYUR MCCULLOUGH) Nutritional Asmnt/Malnutrition Patient General Information Nutritional Screening Moderate Risk Screening Diagnosis Psychosis Pertinent Medical Hx/Surgical Hx schizophrenia Subjective Information Pt did not answer RD questions appropriately. Current Diet Order/ Nutrition Support mechanical soft ground Patient / S.O Can't verbalize diet edu Pertinent Medications maalox, bisacodyl, MOM, theragran, fleet enema Pertinent Labs labs from 06/18/17: Na 150, K 4. 6, Cl 119, CO2 28.8, BUN 52, Cr 1.5, Ca 10.3, glucose 142 Nutritional Hx/Data Height 1.78 m Height (Calculated Centimeters) 177.8 Current Weight (lbs) 70.307 kg Weight (Calculated Kilograms) 70.3 Weight (Calculated Grams) 46725.8 Recent Weight Change No Weight Status Approriate GI Symptoms Difficult in: Chewing Food Allergies No Cultural/Ethnic/Zoroastrian Belief none noted Usual diet at home mechanical soft Skin Integrity/Comment: sabrina score 14 Current %PO Good (75-100%) Estimated Nutritional Goals BEE in Kcals: Using Current wt Calories/Kcals/Kg 25-30kcals/kg Kcals Calculated 1750-2100kcals/day Protein: Using Current wt Protein g/k-1.2g/kg Protein Calculated 70-84g/day Fluid: ml 1750-2100ml/day (1ml/kcal) Nutritional Problem 1. Problem Problem No nutrition diangosis at this time Intervention/Recommendation Comments Recommend continuing mechanical soft ground diet Expected Outcomes/Goals Expected Outcomes/Goals PO intake >75%
[2017-06-27] MEDS: Aspirin 81mg Chewable Tab PO SCH (08:52)
[2017-06-27] MEDS: Multivitamin Tab PO SCH (08:52)
[2017-06-27 09:27] LABS: % BASOPHILS 0.9 % (0.0-2.0); % EOSINOPHILS 2.8 % (0.0-5.0); % LYMPHOCYTES 16.3 % (20.0-50.0); % MONOCYTES 6.3 % (2.0-10.0); % NEUTROPHILS 73.7 % (40.0-80.0); HEMATOCRIT 44.7 % (39.0-49.0); HEMOGLOBIN 15.1 gm/dL (12.6-17.4); MEAN CELL VOLUME 95.1 fl (80-99); MEAN CORPUSCULAR HEMOGLOBIN 32.2 pg (27.0-31.0); MEAN CORPUSCULAR HGB CONC 33.9 pg (28.0-36.0); MEAN PLATELET VOLUME 8.5 fl; RED CELL DISTRIBUTION WIDTH 13.5 % (11.5-20.0); WHITE BLOOD COUNT 6.8 Th/cmm (4.8-10.8)
[2017-06-27 09:31] LABS: PLATELET COUNT 148 Th/cmm (150-400)
[2017-06-27 10:25] LABS: ANION GAP 9.3 (7.0-16.0); BUN - UREA NITROGEN 33 mg/dL (7-25); BUN/CREATININE RATIO 27.5; CALCIUM SERUM 9.8 mg/dL (8.6-10.3); CARBON DIOXIDE 30.6 mEq/L (21.0-31.0); CHLORIDE 110 mEq/L (98-107); CREATININE - SERUM 1.2 mg/dL (0.7-1.3); GLUCOSE 160 mg/dL (70-105); POTASSIUM SERUM 4.9 mEq/L (3.5-5.1); SODIUM SERUM 145 mEq/L (136-145)
--- NOTE | 2017-06-27 20:58 | Progress Notes ---
DATE: 06/27/2017 Case was discussed with staff of the patient and reviewed records. The patient continues to be confused and irritable; however, he is able to feed himself. He is demented, confused, and unable to make safe plan for self-care. He is compliant with the medication with no side effects, no sedation, no nausea, and no extrapyramidal symptoms. We will continue to work with the patient in group therapy, milieu therapy, and adjust the medication as needed. He does have ____ lab work and consulted Dr. Hill regarding that. We will continue to work with the patient in group therapy, milieu therapy, and adjust the medication as needed. JOB# [id number]
[2017-06-28] MEDS: Aspirin 81mg Chewable Tab PO SCH (08:16)
[2017-06-28] MEDS: Multivitamin Tab PO SCH (08:16)
--- NOTE | 2017-06-28 08:22 | General Progress Note ---
Subjective - Review of Systems Service Date: 06/28/17 Subjective: Awake, alert, afebrile. No new changes. Objective - Results Result Diagrams: 06/27/17 09:09 06/27/17 09:09 Recent Labs: Laboratory Last Values WBC 6.8 Th/cmm (4.8-10.8) 06/27/17 09:09 RBC 4.70 Mil/cmm (3.80-5.80) 06/27/17 09:09 Hgb 15.1 gm/dL (12.6-17.4) 06/27/17 09:09 Hct 44.7 % (39.0-49.0) 06/27/17 09:09 MCV 95.1 fl (80-99) 06/27/17 09:09 MCH 32.2 pg (27.0-31.0) H 06/27/17 09:09 MCHC Differential 33.9 pg (28.0-36.0) 06/27/17 09:09 RDW 13.5 % (11.5-20.0) 06/27/17 09:09 Plt Count 148 Th/cmm (150-400) L D 06/27/17 09:09 MPV 8.5 fl 06/27/17 09:09 Neutrophils % 73.7 % (40.0-80.0) 06/27/17 09:09 Lymphocytes % 16.3 % (20.0-50.0) L 06/27/17 09:09 Monocytes % 6.3 % (2.0-10.0) 06/27/17 09:09 Eosinophils % 2.8 % (0.0-5.0) 06/27/17 09:09 Basophils % 0.9 % (0.0-2.0) 06/27/17 09:09 PT 10.1 SECONDS (9.5-11.5) 06/18/17 17:42 INR 0.97 (0.5-1.4) 06/18/17 17:42 PTT (Actin FS) 23.3 SECONDS (26.0-38.0) L 06/18/17 17:42 Sodium 145 mEq/L (136-145) 06/27/17 09:09 Potassium 4.9 mEq/L (3.5-5.1) 06/27/17 09:09 Chloride 110 mEq/L (98-107) H 06/27/17 09:09 Carbon Dioxide 30.6 mEq/L (21.0-31.0) 06/27/17 09:09 Anion Gap 9.3 (7.0-16.0) 06/27/17 09:09 BUN 33 mg/dL (7-25) H 06/27/17 09:09 Creatinine 1.2 mg/dL (0.7-1.3) 06/27/17 09:09 Est GFR ( Amer) TNP 06/27/17 09:09 Est GFR (Non-Af Amer) TNP 06/27/17 09:09 BUN/Creatinine Ratio 27.5 06/27/17 09:09 Glucose 160 mg/dL (70-105) H 06/27/17 09:09 Hemoglobin A1c % 5.6 % (4.0-6.0) 06/27/17 09:09 Calcium 9.8 mg/dL (8.6-10.3) 06/27/17 09:09 Total Bilirubin 0.3 mg/dL (0.3-1.0) 06/18/17 17:42 AST 28 U/L (13-39) 06/18/17 17:42 ALT 32 U/L (7-52) 06/18/17 17:42 Alkaline Phosphatase 43 U/L (34-104) 06/18/17 17:42 Troponin I 0.01 ng/mL (0.01-0.05) 06/18/17 17:42 Total Protein 7.0 gm/dL (6.0-8.3) 06/18/17 17:42 Albumin 4.3 gm/dL (4.2-5.5) 06/18/17 17:42 Globulin 2.7 gm/dL 06/18/17 17:42 Albumin/Globulin Ratio 1.6 (1.0-1.8) 06/18/17 17:42 Triglycerides 120 mg/dL (<150) 06/18/17 17:42 Cholesterol 192 mg/dL (<200) 06/18/17 17:42 LDL Cholesterol Direct 150 mg/dL (75-193) 06/18/17 17:42 HDL Cholesterol 46 mg/dL (23-92) 06/18/17 17:42 TSH 1.27 uIU/ml (0.34-5.60) 06/18/17 17:42 RPR NONREACTIVE (NONREACTIVE) 06/18/17 17:42 - Physical Exam Vitals and I&O: Vital Signs Temp 97.7 F 06/28/17 07:24 Pulse 58 06/28/17 07:24 Resp 18 06/28/17 07:24 BP 160/77 06/28/17 07:24 Pulse Ox 93 06/28/17 07:24 Intake & Output 06/27/17 06/28/17 06/28/17 18:59 06:59 18:59 Intake Total 600 120 Balance 600 120 Intake: Oral 600 120 Other: # Voids 3 # Bowel Movements 1 Active Medications: Current Medications Acetaminophen (Tylenol) 650 mg PO Q4HR PRN PRN Reason: Mild Pain / Temp above 100 Stop: 08/17/17 22:02 Al Hydrox/Mg Hydrox/Simethicone (Maalox) 30 ml PO Q4HR PRN PRN Reason: GI DISTRESS Stop: 08/17/17 22:02 Aspirin (Aspirin Chewable) 81 mg PO DAILY [facility] Stop: 08/18/17 08:59 Last Admin: 06/28/17 08:16 Dose: 81 mg Bisacodyl (Dulcolax 10 Mg Supp) 10 mg RC Q72HR PRN PRN Reason: Constipation Stop: 08/17/17 22:14 Buspirone HCl (Buspar) 10 mg PO BID CHRISTOPHER PRN Reason: Protocol Stop: 08/18/17 16:59 Last Admin: 06/28/17 08:15 Dose: 10 mg Clonazepam (Klonopin) 0.5 mg PO TID PRN; Protocol PRN Reason: Anxiety Stop: 08/18/17 13:59 Last Admin: 06/27/17 12:58 Dose: 0.5 mg Gabapentin (Neurontin) 100 mg PO QID CHRISTOPHER Stop: 08/20/17 12:59 Last Admin: 06/28/17 08:15 Dose: 100 mg Magnesium Hydroxide (Milk Of Magnesia) 30 ml PO HS PRN PRN Reason: Constipation Multivitamins/Vitamin C (Theragran) 1 tab PO DAILY CHRISTOPHER Stop: 08/18/17 08:59 Last Admin: 06/28/17 08:16 Dose: 1 tab Risperidone (Risperdal) 0.5 mg PO BID CHRISTOPHER PRN Reason: Protocol Stop: 08/18/17 16:59 Last Admin: 06/28/17 08:15 Dose: 0.5 mg Sodium Phosphate (Fleet Enema) 135 ml RC Q72HR PRN PRN Reason: Constipation Stop: 08/17/17 22:14 Zolpidem Tartrate (Ambien) 5 mg PO HS PRN PRN Reason: Insomnia Stop: 08/26/17 17:09 General: Alert, No acute distress HEENT: Atraumatic, PERRLA, EOMI Neck: Supple Cardiovascular: Regular rate, Normal S1, Normal S2 Lungs: Clear to auscultation Abdomen: Bowel sounds, Soft Extremities: no Clubbing, no Cyanosis, no Edema Neurological: Normal gait, Normal speech Skin: no Rash Assessment/Plan - Problem List Patient Problems: All Active Problems Anemia (Acute) D64.9 Anxiety (Acute) F41.9 Dementia (Acute) F03.90 Elevated blood sugar (Acute) R73.9 Encephalopathy (Acute) G93.40 Hypernatremia (Acute) E87.0 INCREASED AGITATION AND LOWER LIP TRAUMA (Acute) Psychosis (Acute) F29 Renal insufficiency (Acute) Schizophrenia (Acute) F20.9 Weakness (Acute) - Assessment Assessment: Current Active Problems Problem Status Onset INCREASED AGITATION AND LOWER LIP TRAUMA Acute psychosis dementia schizophrenia anxiety disorder metabolic encephalopathy anemia muscle weakness renal insufficiency elevated blood sugar hypernatremia now improved. - Plan Plan: psychosis schizophrenia dementia encephalopathy anxiety disorder anemia weakness renal insufficiency ... now improved. Cr 1.2. Continue to encourage PO fluids. Elevated blood sugar ... will order a HgA1c and accuchecks. labwork pending Nutritional Asmnt/Malnutr-PDOC - Dietary Evaluation Malnutrition Findings (Please click <Entered> for more info): Nutritional Asmnt/Malnutrition Start: 06/23/17 10: 24 Text: Status: Complete Freq: Document 06/23/17 10:24 KEYUR (Rec: 06/23/17 10:30 KEYUR BLAKELY- [email or web address]) Nutritional Asmnt/Malnutrition Patient General Information Nutritional Screening Moderate Risk Screening Diagnosis Psychosis Pertinent Medical Hx/Surgical Hx schizophrenia Subjective Information Pt did not answer RD questions appropriately. Current Diet Order/ Nutrition Support mechanical soft ground Patient / S.O Can't verbalize diet edu Pertinent Medications maalox, bisacodyl, MOM, theragran, fleet enema Pertinent Labs labs from 06/18/17: Na 150, K 4. 6, Cl 119, CO2 28.8, BUN 52, Cr 1.5, Ca 10.3, glucose 142 Nutritional Hx/Data Height 1.78 m Height (Calculated Centimeters) 177.8 Current Weight (lbs) 70.307 kg Weight (Calculated Kilograms) 70.3 Weight (Calculated Grams) 69097.8 Recent Weight Change No Weight Status Approriate GI Symptoms Difficult in: Chewing Food Allergies No Cultural/Ethnic/Yazdanism Belief none noted Usual diet at home mechanical soft Skin Integrity/Comment: sabrina score 14 Current %PO Good (75-100%) Estimated Nutritional Goals BEE in Kcals: Using Current wt Calories/Kcals/Kg 25-30kcals/kg Kcals Calculated 1750-2100kcals/day Protein: Using Current wt Protein g/k-1.2g/kg Protein Calculated 70-84g/day Fluid: ml 1750-2100ml/day (1ml/kcal) Nutritional Problem 1. Problem Problem No nutrition diangosis at this time Intervention/Recommendation Comments Recommend continuing mechanical soft ground diet Expected Outcomes/Goals Expected Outcomes/Goals PO intake >75%
--- NOTE | 2017-06-28 20:48 | Progress Notes ---
DATE: 06/28/2017 Case was discussed with staff of the patient, reviewed records. The patient continues to be confused, unpredictable, impulsive, needing redirection. Continues to have poor insight. Continues to be demented, confused, and that is not expected to be improving much working also on placement for this patient. No side effects with the medication. No sedation. No nausea. No extrapyramidal symptoms. He tolerates the medication, increasing Risperdal, with no side effects. We will continue to work with the patient in group therapy, milieu therapy, and adjust the medication as needed. JOB# [id number]
--- NOTE | 2017-06-29 08:23 | General Progress Note ---
Subjective - Review of Systems Service Date: 06/29/17 Subjective: Awake, alert, afebrile. No new changes. Objective - Results Result Diagrams: 06/27/17 09:09 06/27/17 09:09 Recent Labs: Laboratory Last Values WBC 6.8 Th/cmm (4.8-10.8) 06/27/17 09:09 RBC 4.70 Mil/cmm (3.80-5.80) 06/27/17 09:09 Hgb 15.1 gm/dL (12.6-17.4) 06/27/17 09:09 Hct 44.7 % (39.0-49.0) 06/27/17 09:09 MCV 95.1 fl (80-99) 06/27/17 09:09 MCH 32.2 pg (27.0-31.0) H 06/27/17 09:09 MCHC Differential 33.9 pg (28.0-36.0) 06/27/17 09:09 RDW 13.5 % (11.5-20.0) 06/27/17 09:09 Plt Count 148 Th/cmm (150-400) L D 06/27/17 09:09 MPV 8.5 fl 06/27/17 09:09 Neutrophils % 73.7 % (40.0-80.0) 06/27/17 09:09 Lymphocytes % 16.3 % (20.0-50.0) L 06/27/17 09:09 Monocytes % 6.3 % (2.0-10.0) 06/27/17 09:09 Eosinophils % 2.8 % (0.0-5.0) 06/27/17 09:09 Basophils % 0.9 % (0.0-2.0) 06/27/17 09:09 PT 10.1 SECONDS (9.5-11.5) 06/18/17 17:42 INR 0.97 (0.5-1.4) 06/18/17 17:42 PTT (Actin FS) 23.3 SECONDS (26.0-38.0) L 06/18/17 17:42 Sodium 145 mEq/L (136-145) 06/27/17 09:09 Potassium 4.9 mEq/L (3.5-5.1) 06/27/17 09:09 Chloride 110 mEq/L (98-107) H 06/27/17 09:09 Carbon Dioxide 30.6 mEq/L (21.0-31.0) 06/27/17 09:09 Anion Gap 9.3 (7.0-16.0) 06/27/17 09:09 BUN 33 mg/dL (7-25) H 06/27/17 09:09 Creatinine 1.2 mg/dL (0.7-1.3) 06/27/17 09:09 Est GFR ( Amer) TNP 06/27/17 09:09 Est GFR (Non-Af Amer) TNP 06/27/17 09:09 BUN/Creatinine Ratio 27.5 06/27/17 09:09 Glucose 160 mg/dL (70-105) H 06/27/17 09:09 Hemoglobin A1c % 5.6 % (4.0-6.0) 06/27/17 09:09 Calcium 9.8 mg/dL (8.6-10.3) 06/27/17 09:09 Total Bilirubin 0.3 mg/dL (0.3-1.0) 06/18/17 17:42 AST 28 U/L (13-39) 06/18/17 17:42 ALT 32 U/L (7-52) 06/18/17 17:42 Alkaline Phosphatase 43 U/L (34-104) 06/18/17 17:42 Troponin I 0.01 ng/mL (0.01-0.05) 06/18/17 17:42 Total Protein 7.0 gm/dL (6.0-8.3) 06/18/17 17:42 Albumin 4.3 gm/dL (4.2-5.5) 06/18/17 17:42 Globulin 2.7 gm/dL 06/18/17 17:42 Albumin/Globulin Ratio 1.6 (1.0-1.8) 06/18/17 17:42 Triglycerides 120 mg/dL (<150) 06/18/17 17:42 Cholesterol 192 mg/dL (<200) 06/18/17 17:42 LDL Cholesterol Direct 150 mg/dL (75-193) 06/18/17 17:42 HDL Cholesterol 46 mg/dL (23-92) 06/18/17 17:42 TSH 1.27 uIU/ml (0.34-5.60) 06/18/17 17:42 RPR NONREACTIVE (NONREACTIVE) 06/18/17 17:42 - Physical Exam Vitals and I&O: Vital Signs Temp 98 F 06/29/17 06:38 Pulse 69 06/29/17 06:38 Resp 20 06/29/17 06:38 BP 145/79 06/29/17 06:38 Pulse Ox 97 06/29/17 06:38 Intake & Output 06/28/17 06/29/17 06/29/17 18:59 06:59 18:59 Intake Total 1920 120 Balance 1920 120 Intake: Oral 192 120 Other: # Voids 4 3 # Bowel Movements 1 Active Medications: Current Medications Acetaminophen (Tylenol) 650 mg PO Q4HR PRN PRN Reason: Mild Pain / Temp above 100 Stop: 08/17/17 22:02 Al Hydrox/Mg Hydrox/Simethicone (Maalox) 30 ml PO Q4HR PRN PRN Reason: GI DISTRESS Stop: 08/17/17 22:02 Aspirin (Aspirin Chewable) 81 mg PO DAILY [facility] Stop: 08/18/17 08:59 Last Admin: 06/28/17 08:16 Dose: 81 mg Bisacodyl (Dulcolax 10 Mg Supp) 10 mg RC Q72HR PRN PRN Reason: Constipation Stop: 08/17/17 22:14 Buspirone HCl (Buspar) 10 mg PO BID CHRISTOPHER PRN Reason: Protocol Stop: 08/18/17 16:59 Last Admin: 06/28/17 16:17 Dose: 10 mg Clonazepam (Klonopin) 0.5 mg PO TID PRN; Protocol PRN Reason: Anxiety Stop: 08/18/17 13:59 Last Admin: 06/27/17 12:58 Dose: 0.5 mg Gabapentin (Neurontin) 100 mg PO QID CHRISTOPHER Stop: 08/20/17 12:59 Last Admin: 06/28/17 20:31 Dose: 100 mg Magnesium Hydroxide (Milk Of Magnesia) 30 ml PO HS PRN PRN Reason: Constipation Multivitamins/Vitamin C (Theragran) 1 tab PO DAILY CHRISTOPHER Stop: 08/18/17 08:59 Last Admin: 06/28/17 08:16 Dose: 1 tab Risperidone (Risperdal) 0.5 mg PO BID CHRISTOPHER PRN Reason: Protocol Stop: 08/18/17 16:59 Last Admin: 06/28/17 16:17 Dose: 0.5 mg Sodium Phosphate (Fleet Enema) 135 ml RC Q72HR PRN PRN Reason: Constipation Stop: 08/17/17 22:14 Zolpidem Tartrate (Ambien) 5 mg PO HS PRN PRN Reason: Insomnia Stop: 08/26/17 17:09 Last Admin: 06/28/17 20:31 Dose: 5 mg General: Alert, No acute distress HEENT: Atraumatic, PERRLA, EOMI Neck: Supple Cardiovascular: Regular rate, Normal S1, Normal S2 Lungs: Clear to auscultation Abdomen: Bowel sounds, Soft Extremities: no Clubbing, no Cyanosis, no Edema Neurological: Normal gait, Normal speech Skin: no Rash Assessment/Plan - Problem List Patient Problems: All Active Problems Anemia (Acute) D64.9 Anxiety (Acute) F41.9 Dementia (Acute) F03.90 Elevated blood sugar (Acute) R73.9 Encephalopathy (Acute) G93.40 Hypernatremia (Acute) E87.0 INCREASED AGITATION AND LOWER LIP TRAUMA (Acute) Psychosis (Acute) F29 Renal insufficiency (Acute) Schizophrenia (Acute) F20.9 Weakness (Acute) - Assessment Assessment: Current Active Problems Problem Status Onset INCREASED AGITATION AND LOWER LIP TRAUMA Acute psychosis dementia schizophrenia anxiety disorder metabolic encephalopathy anemia muscle weakness renal insufficiency elevated blood sugar hypernatremia now improved. - Plan Plan: psychosis schizophrenia dementia encephalopathy anxiety disorder anemia weakness renal insufficiency ... now improved. Cr 1.2. Continue to encourage PO fluids. Elevated blood sugar ... will order a HgA1c and accuchecks. labwork pending Nutritional Asmnt/Malnutr-PDOC - Dietary Evaluation Malnutrition Findings (Please click <Entered> for more info): Nutritional Asmnt/Malnutrition Start: 06/23/17 10: 24 Text: Status: Complete Freq: Document 06/23/17 10:24 KEYUR (Rec: 06/23/17 10:30 KEYUR BLAKELY [email or web address]) Nutritional Asmnt/Malnutrition Patient General Information Nutritional Screening Moderate Risk Screening Diagnosis Psychosis Pertinent Medical Hx/Surgical Hx schizophrenia Subjective Information Pt did not answer RD questions appropriately. Current Diet Order/ Nutrition Support mechanical soft ground Patient / S.O Can't verbalize diet edu Pertinent Medications maalox, bisacodyl, MOM, theragran, fleet enema Pertinent Labs labs from 06/18/17: Na 150, K 4. 6, Cl 119, CO2 28.8, BUN 52, Cr 1.5, Ca 10.3, glucose 142 Nutritional Hx/Data Height 1.78 m Height (Calculated Centimeters) 177.8 Current Weight (lbs) 70.307 kg Weight (Calculated Kilograms) 70.3 Weight (Calculated Grams) 11180.8 Recent Weight Change No Weight Status Approriate GI Symptoms Difficult in: Chewing Food Allergies No Cultural/Ethnic/Buddhism Belief none noted Usual diet at home mechanical soft Skin Integrity/Comment: sabrina score 14 Current %PO Good (75-100%) Estimated Nutritional Goals BEE in Kcals: Using Current wt Calories/Kcals/Kg 25-30kcals/kg Kcals Calculated 1750-2100kcals/day Protein: Using Current wt Protein g/k-1.2g/kg Protein Calculated 70-84g/day Fluid: ml 1750-2100ml/day (1ml/kcal) Nutritional Problem 1. Problem Problem No nutrition diangosis at this time Intervention/Recommendation Comments Recommend continuing mechanical soft ground diet Expected Outcomes/Goals Expected Outcomes/Goals PO intake >75%
[2017-06-29] MEDS: Multivitamin Tab PO SCH (09:39)
[2017-06-29] MEDS: Aspirin 81mg Chewable Tab PO SCH (09:39)
--- NOTE | 2017-06-29 21:48 | Progress Notes ---
DATE: 06/29/2017 The case discussed with staff of the patient, reviewed records. The patient continues to be confused, easily agitated, unpredictable, impulsive, needing redirection. He is sleeping better, eating better. He does not participate in a meaningful conversation, unable to take care of himself. No side effects with the medication, no sedation, no nausea. No extrapyramidal symptoms. We will continue to work with the patient in group therapy, milieu therapy, and adjust medication as needed. JOB# [id number]
--- NOTE | 2017-06-30 05:53 | General Progress Note ---
Subjective - Review of Systems Service Date: 06/30/17 Subjective: Awake, alert, afebrile. No new changes. Patient has improved PO intake. taking medications. Objective - Results Result Diagrams: 06/27/17 09:09 06/27/17 09:09 Recent Labs: Laboratory Last Values WBC 6.8 Th/cmm (4.8-10.8) 06/27/17 09:09 RBC 4.70 Mil/cmm (3.80-5.80) 06/27/17 09:09 Hgb 15.1 gm/dL (12.6-17.4) 06/27/17 09:09 Hct 44.7 % (39.0-49.0) 06/27/17 09:09 MCV 95.1 fl (80-99) 06/27/17 09:09 MCH 32.2 pg (27.0-31.0) H 06/27/17 09:09 MCHC Differential 33.9 pg (28.0-36.0) 06/27/17 09:09 RDW 13.5 % (11.5-20.0) 06/27/17 09:09 Plt Count 148 Th/cmm (150-400) L D 06/27/17 09:09 MPV 8.5 fl 06/27/17 09:09 Neutrophils % 73.7 % (40.0-80.0) 06/27/17 09:09 Lymphocytes % 16.3 % (20.0-50.0) L 06/27/17 09:09 Monocytes % 6.3 % (2.0-10.0) 06/27/17 09:09 Eosinophils % 2.8 % (0.0-5.0) 06/27/17 09:09 Basophils % 0.9 % (0.0-2.0) 06/27/17 09:09 PT 10.1 SECONDS (9.5-11.5) 06/18/17 17:42 INR 0.97 (0.5-1.4) 06/18/17 17:42 PTT (Actin FS) 23.3 SECONDS (26.0-38.0) L 06/18/17 17:42 Sodium 145 mEq/L (136-145) 06/27/17 09:09 Potassium 4.9 mEq/L (3.5-5.1) 06/27/17 09:09 Chloride 110 mEq/L (98-107) H 06/27/17 09:09 Carbon Dioxide 30.6 mEq/L (21.0-31.0) 06/27/17 09:09 Anion Gap 9.3 (7.0-16.0) 06/27/17 09:09 BUN 33 mg/dL (7-25) H 06/27/17 09:09 Creatinine 1.2 mg/dL (0.7-1.3) 06/27/17 09:09 Est GFR ( Amer) TNP 06/27/17 09:09 Est GFR (Non-Af Amer) TNP 06/27/17 09:09 BUN/Creatinine Ratio 27.5 06/27/17 09:09 Glucose 160 mg/dL (70-105) H 06/27/17 09:09 Hemoglobin A1c % 5.6 % (4.0-6.0) 06/27/17 09:09 Calcium 9.8 mg/dL (8.6-10.3) 06/27/17 09:09 Total Bilirubin 0.3 mg/dL (0.3-1.0) 06/18/17 17:42 AST 28 U/L (13-39) 06/18/17 17:42 ALT 32 U/L (7-52) 06/18/17 17:42 Alkaline Phosphatase 43 U/L (34-104) 06/18/17 17:42 Troponin I 0.01 ng/mL (0.01-0.05) 06/18/17 17:42 Total Protein 7.0 gm/dL (6.0-8.3) 06/18/17 17:42 Albumin 4.3 gm/dL (4.2-5.5) 06/18/17 17:42 Globulin 2.7 gm/dL 06/18/17 17:42 Albumin/Globulin Ratio 1.6 (1.0-1.8) 06/18/17 17:42 Triglycerides 120 mg/dL (<150) 06/18/17 17:42 Cholesterol 192 mg/dL (<200) 06/18/17 17:42 LDL Cholesterol Direct 150 mg/dL (75-193) 06/18/17 17:42 HDL Cholesterol 46 mg/dL (23-92) 06/18/17 17:42 TSH 1.27 uIU/ml (0.34-5.60) 06/18/17 17:42 RPR NONREACTIVE (NONREACTIVE) 06/18/17 17:42 - Physical Exam Vitals and I&O: Vital Signs Temp 97.6 F 06/29/17 21:47 Pulse 59 06/29/17 21:47 Resp 18 06/29/17 21:47 BP 126/58 06/29/17 21:47 Pulse Ox 96 06/29/17 21:47 Intake & Output 06/29/17 06/29/17 06/30/17 06:59 18:59 06:59 Intake Total 120 900 Balance 120 900 Intake: Oral 120 900 Other: # Voids 3 2 2 # Bowel Movements 1 Active Medications: Current Medications Acetaminophen (Tylenol) 650 mg PO Q4HR PRN PRN Reason: Mild Pain / Temp above 100 Stop: 08/17/17 22:02 Al Hydrox/Mg Hydrox/Simethicone (Maalox) 30 ml PO Q4HR PRN PRN Reason: GI DISTRESS Stop: 08/17/17 22:02 Aspirin (Aspirin Chewable) 81 mg PO DAILY [facility] Stop: 08/18/17 08:59 Last Admin: 06/29/17 09:39 Dose: 81 mg Bisacodyl (Dulcolax 10 Mg Supp) 10 mg RC Q72HR PRN PRN Reason: Constipation Stop: 08/17/17 22:14 Buspirone HCl (Buspar) 10 mg PO BID CHRISTOPHER PRN Reason: Protocol Stop: 08/18/17 16:59 Last Admin: 06/29/17 18:27 Dose: 10 mg Clonazepam (Klonopin) 0.5 mg PO TID PRN; Protocol PRN Reason: Anxiety Stop: 08/18/17 13:59 Last Admin: 06/27/17 12:58 Dose: 0.5 mg Gabapentin (Neurontin) 100 mg PO QID CHRISTOPHER Stop: 08/20/17 12:59 Last Admin: 06/29/17 20:59 Dose: 100 mg Magnesium Hydroxide (Milk Of Magnesia) 30 ml PO HS PRN PRN Reason: Constipation Multivitamins/Vitamin C (Theragran) 1 tab PO DAILY CHRISTOPHER Stop: 08/18/17 08:59 Last Admin: 08/18/17 09:39 Dose: 1 tab Risperidone (Risperdal) 0.5 mg PO BID CHRISTOPHER PRN Reason: Protocol Stop: 08/18/17 16:59 Last Admin: 06/29/17 18:27 Dose: 0.5 mg Sodium Phosphate (Fleet Enema) 135 ml RC Q72HR PRN PRN Reason: Constipation Stop: 08/17/17 22:14 Zolpidem Tartrate (Ambien) 5 mg PO HS PRN PRN Reason: Insomnia Stop: 08/26/17 17:09 Last Admin: 06/28/17 20:31 Dose: 5 mg General: Alert, No acute distress HEENT: Atraumatic, PERRLA, EOMI Neck: Supple Cardiovascular: Regular rate, Normal S1, Normal S2 Lungs: Clear to auscultation Abdomen: Bowel sounds, Soft Extremities: no Clubbing, no Cyanosis, no Edema Neurological: Normal gait, Normal speech Skin: no Rash Assessment/Plan - Problem List Patient Problems: All Active Problems Anemia (Acute) D64.9 Anxiety (Acute) F41.9 Dementia (Acute) F03.90 Elevated blood sugar (Acute) R73.9 Encephalopathy (Acute) G93.40 Hypernatremia (Acute) E87.0 INCREASED AGITATION AND LOWER LIP TRAUMA (Acute) Psychosis (Acute) F29 Renal insufficiency (Acute) Schizophrenia (Acute) F20.9 Weakness (Acute) - Assessment Assessment: Current Active Problems Problem Status Onset INCREASED AGITATION AND LOWER LIP TRAUMA Acute psychosis dementia schizophrenia anxiety disorder metabolic encephalopathy anemia muscle weakness renal insufficiency elevated blood sugar hypernatremia now improved. Na is 145 and cr 1.2 - Plan Plan: psychosis schizophrenia dementia encephalopathy anxiety disorder anemia weakness renal insufficiency ... now improved. Cr 1.2. Will encourage PO fluids. Elevated blood sugar ... A1c is normal. Nutritional Asmnt/Malnutr-PDOC - Dietary Evaluation Malnutrition Findings (Please click <Entered> for more info): Nutritional Asmnt/Malnutrition Start: 06/23/17 10: 24 Text: Status: Complete Freq: Document 06/23/17 10:24 KEYUR (Rec: 06/23/17 10:30 KEYUR BLAKELY- FNS1) Nutritional Asmnt/Malnutrition Patient General Information Nutritional Screening Moderate Risk Screening Diagnosis Psychosis Pertinent Medical Hx/Surgical Hx schizophrenia Subjective Information Pt did not answer RD questions appropriately. Current Diet Order/ Nutrition Support mechanical soft ground Patient / S.O Can't verbalize diet edu Pertinent Medications maalox, bisacodyl, MOM, theragran, fleet enema Pertinent Labs labs from 06/18/17: Na 150, K 4. 6, Cl 119, CO2 28.8, BUN 52, Cr 1.5, Ca 10.3, glucose 142 Nutritional Hx/Data Height 1.78 m Height (Calculated Centimeters) 177.8 Current Weight (lbs) 70.307 kg Weight (Calculated Kilograms) 70.3 Weight (Calculated Grams) 57015.8 Recent Weight Change No Weight Status Approriate GI Symptoms Difficult in: Chewing Food Allergies No Cultural/Ethnic/Judaism Belief none noted Usual diet at home mechanical soft Skin Integrity/Comment: sabrina score 14 Current %PO Good (75-100%) Estimated Nutritional Goals BEE in Kcals: Using Current wt Calories/Kcals/Kg 25-30kcals/kg Kcals Calculated 1750-2100kcals/day Protein: Using Current wt Protein g/k-1.2g/kg Protein Calculated 70-84g/day Fluid: ml 1750-2100ml/day (1ml/kcal) Nutritional Problem 1. Problem Problem No nutrition diangosis at this time Intervention/Recommendation Comments Recommend continuing mechanical soft ground diet Expected Outcomes/Goals Expected Outcomes/Goals PO intake >75%
[2017-06-30] MEDS: Aspirin 81mg Chewable Tab PO SCH (09:17)
[2017-06-30] MEDS: Multivitamin Tab PO SCH (09:17)
--- NOTE | 2017-06-30 13:47 | Progress Notes ---
DATE: 06/30/2017 SUBJECTIVE: Chart reviewed and the patient interviewed. Also discussed the patient's condition with the staff and reviewed records and labs. The patient is yelling and screaming and patient still have episodes of agitation, but seems to be calmer than the day before according to the staff. The patient required p.r.n. Klonopin in order to calm him down. He is still rambling. During interview, the patient has disorganized thoughts and the patient is disheveled. Also unable to answer questions coherently. ASSESSMENT: The patient is still psychotic. TREATMENT PLAN: We will continue to monitor the patient's behavior and condition closely. Also, the patient is still taking BuSpar at a dose of 10 mg twice a day with no side effects. We will increase BuSpar to ____ mg twice a day and we will continue to work on his poor impulse control and his behavior problems. JOB# [id number]
--- NOTE | 2017-07-01 06:54 | General Progress Note ---
Subjective - Review of Systems Service Date: 07/01/17 Subjective: Awake, alert, afebrile. No new changes. Patient has improved PO intake. taking medications. Objective - Results Result Diagrams: 06/27/17 09:09 06/27/17 09:09 Recent Labs: Laboratory Last Values WBC 6.8 Th/cmm (4.8-10.8) 06/27/17 09:09 RBC 4.70 Mil/cmm (3.80-5.80) 06/27/17 09:09 Hgb 15.1 gm/dL (12.6-17.4) 06/27/17 09:09 Hct 44.7 % (39.0-49.0) 06/27/17 09:09 MCV 95.1 fl (80-99) 06/27/17 09:09 MCH 32.2 pg (27.0-31.0) H 06/27/17 09:09 MCHC Differential 33.9 pg (28.0-36.0) 06/27/17 09:09 RDW 13.5 % (11.5-20.0) 06/27/17 09:09 Plt Count 148 Th/cmm (150-400) L D 06/27/17 09:09 MPV 8.5 fl 06/27/17 09:09 Neutrophils % 73.7 % (40.0-80.0) 06/27/17 09:09 Lymphocytes % 16.3 % (20.0-50.0) L 06/27/17 09:09 Monocytes % 6.3 % (2.0-10.0) 06/27/17 09:09 Eosinophils % 2.8 % (0.0-5.0) 06/27/17 09:09 Basophils % 0.9 % (0.0-2.0) 06/27/17 09:09 PT 10.1 SECONDS (9.5-11.5) 06/18/17 17:42 INR 0.97 (0.5-1.4) 06/18/17 17:42 PTT (Actin FS) 23.3 SECONDS (26.0-38.0) L 06/18/17 17:42 Sodium 145 mEq/L (136-145) 06/27/17 09:09 Potassium 4.9 mEq/L (3.5-5.1) 06/27/17 09:09 Chloride 110 mEq/L (98-107) H 06/27/17 09:09 Carbon Dioxide 30.6 mEq/L (21.0-31.0) 06/27/17 09:09 Anion Gap 9.3 (7.0-16.0) 06/27/17 09:09 BUN 33 mg/dL (7-25) H 06/27/17 09:09 Creatinine 1.2 mg/dL (0.7-1.3) 06/27/17 09:09 Est GFR ( Amer) TNP 06/27/17 09:09 Est GFR (Non-Af Amer) TNP 06/27/17 09:09 BUN/Creatinine Ratio 27.5 06/27/17 09:09 Glucose 160 mg/dL (70-105) H 06/27/17 09:09 Hemoglobin A1c % 5.6 % (4.0-6.0) 06/27/17 09:09 Calcium 9.8 mg/dL (8.6-10.3) 06/27/17 09:09 Total Bilirubin 0.3 mg/dL (0.3-1.0) 06/18/17 17:42 AST 28 U/L (13-39) 06/18/17 17:42 ALT 32 U/L (7-52) 06/18/17 17:42 Alkaline Phosphatase 43 U/L (34-104) 06/18/17 17:42 Troponin I 0.01 ng/mL (0.01-0.05) 06/18/17 17:42 Total Protein 7.0 gm/dL (6.0-8.3) 06/18/17 17:42 Albumin 4.3 gm/dL (4.2-5.5) 06/18/17 17:42 Globulin 2.7 gm/dL 06/18/17 17:42 Albumin/Globulin Ratio 1.6 (1.0-1.8) 06/18/17 17:42 Triglycerides 120 mg/dL (<150) 06/18/17 17:42 Cholesterol 192 mg/dL (<200) 06/18/17 17:42 LDL Cholesterol Direct 150 mg/dL (75-193) 06/18/17 17:42 HDL Cholesterol 46 mg/dL (23-92) 06/18/17 17:42 TSH 1.27 uIU/ml (0.34-5.60) 06/18/17 17:42 RPR NONREACTIVE (NONREACTIVE) 06/18/17 17:42 - Physical Exam Vitals and I&O: Vital Signs Temp 97.5 F 07/01/17 06:27 Pulse 53 07/01/17 06:27 Resp 18 07/01/17 06:27 BP 125/58 07/01/17 06:27 Pulse Ox 96 07/01/17 06:27 Intake & Output 06/30/17 06/30/17 07/01/17 06:59 18:59 06:59 Intake Total 900 240 Output Total 1 0 Balance -1 900 240 Intake: Oral 900 240 Output: Urine/Stool Mix 1 0 Other: # Voids 2 3 3 Active Medications: Current Medications Acetaminophen (Tylenol) 650 mg PO Q4HR PRN PRN Reason: Mild Pain / Temp above 100 Stop: 08/17/17 22:02 Al Hydrox/Mg Hydrox/Simethicone (Maalox) 30 ml PO Q4HR PRN PRN Reason: GI DISTRESS Stop: 08/17/17 22:02 Aspirin (Aspirin Chewable) 81 mg PO DAILY [facility] Stop: 08/18/17 08:59 Last Admin: 06/30/17 09:17 Dose: 81 mg Bisacodyl (Dulcolax 10 Mg Supp) 10 mg RC Q72HR PRN PRN Reason: Constipation Stop: 08/17/17 22:14 Buspirone HCl (Buspar) 15 mg PO BID CHRISTOPHER PRN Reason: Protocol Stop: 08/18/17 16:59 Last Admin: 06/30/17 16:12 Dose: 15 mg Clonazepam (Klonopin) 0.5 mg PO TID PRN; Protocol PRN Reason: Anxiety Stop: 08/18/17 13:59 Last Admin: 06/30/17 20:53 Dose: 0.5 mg Gabapentin (Neurontin) 100 mg PO QID CH[facility]STOPHER Stop: 08/20/17 12:59 Last Admin: 06/30/17 20:53 Dose: 100 mg Magnesium Hydroxide (Milk Of Magnesia) 30 ml PO HS PRN PRN Reason: Constipation Multivitamins/Vitamin C (Theragran) 1 tab PO DAILY [facility] Stop: 08/18/17 08:59 Last Admin: 06/30/17 09:17 Dose: 1 tab Risperidone (Risperdal) 0.5 mg PO BID CHRISTOPHER PRN Reason: Protocol Stop: 08/18/17 16:59 Last Admin: 06/30/17 16:12 Dose: 0.5 mg Sodium Phosphate (Fleet Enema) 135 ml RC Q72HR PRN PRN Reason: Constipation Stop: 08/17/17 22:14 Zolpidem Tartrate (Ambien) 5 mg PO HS PRN PRN Reason: Insomnia Stop: 08/26/17 17:09 Last Admin: 06/30/17 23:00 Dose: 5 mg General: Alert, No acute distress HEENT: Atraumatic, PERRLA, EOMI Neck: Supple Cardiovascular: Regular rate, Normal S1, Normal S2 Lungs: Clear to auscultation Abdomen: Bowel sounds, Soft Extremities: no Clubbing, no Cyanosis, no Edema Neurological: Normal gait, Normal speech Skin: no Rash Assessment/Plan - Problem List Patient Problems: All Active Problems Anemia (Acute) D64.9 Anxiety (Acute) F41.9 Dementia (Acute) F03.90 Elevated blood sugar (Acute) R73.9 Encephalopathy (Acute) G93.40 Hypernatremia (Acute) E87.0 INCREASED AGITATION AND LOWER LIP TRAUMA (Acute) Psychosis (Acute) F29 Renal insufficiency (Acute) Schizophrenia (Acute) F20.9 Weakness (Acute) - Assessment Assessment: Current Active Problems Problem Status Onset INCREASED AGITATION AND LOWER LIP TRAUMA Acute psychosis dementia schizophrenia anxiety disorder metabolic encephalopathy anemia muscle weakness renal insufficiency elevated blood sugar hypernatremia now improved. Na is 145 and cr 1.2 - Plan Plan: psychosis schizophrenia dementia encephalopathy anxiety disorder anemia weakness renal insufficiency ... now improved. Cr 1.2. Will encourage PO fluids. Elevated blood sugar ... A1c is normal. Nutritional Asmnt/Malnutr-PDOC - Dietary Evaluation Malnutrition Findings (Please click <Entered> for more info): Nutritional Asmnt/Malnutrition Start: 06/23/17 10: 24 Text: Status: Complete Freq: Document 06/23/17 10:24 KEYUR (Rec: 06/23/17 10:30 [facility]UR [id number]) Nutritional Asmnt/Malnutrition Patient General Information Nutritional Screening Moderate Risk Screening Diagnosis Psychosis Pertinent Medical Hx/Surgical Hx schizophrenia Subjective Information Pt did not answer RD questions appropriately. Current Diet Order/ Nutrition Support mechanical soft ground Patient / S.O Can't verbalize diet edu Pertinent Medications maalox, bisacodyl, MOM, theragran, fleet enema Pertinent Labs labs from 06/18/17: Na 150, K 4. 6, Cl 119, CO2 28.8, BUN 52, Cr 1.5, Ca 10.3, glucose 142 Nutritional Hx/Data Height 1.78 m Height (Calculated Centimeters) 177.8 Current Weight (lbs) 70.307 kg Weight (Calculated Kilograms) 70.3 Weight (Calculated Grams) 26590.8 Recent Weight Change No Weight Status Approriate GI Symptoms Difficult in: Chewing Food Allergies No Cultural/Ethnic/Mandaen Belief none noted Usual diet at home mechanical soft Skin Integrity/Comment: sabrina score 14 Current %PO Good (75-100%) Estimated Nutritional Goals BEE in Kcals: Using Current wt Calories/Kcals/Kg 25-30kcals/kg Kcals Calculated 1750-2100kcals/day Protein: Using Current wt Protein g/k-1.2g/kg Protein Calculated 70-84g/day Fluid: ml 1750-2100ml/day (1ml/kcal) Nutritional Problem 1. Problem Problem No nutrition diangosis at this time Intervention/Recommendation Comments Recommend continuing mechanical soft ground diet Expected Outcomes/Goals Expected Outcomes/Goals PO intake >75%
[2017-07-01] MEDS: Multivitamin Tab PO SCH (09:48)
[2017-07-01] MEDS: Aspirin 81mg Chewable Tab PO SCH (09:48)
--- NOTE | 2017-07-01 16:41 | Progress Notes ---
DATE: 07/01/2017 SUBJECTIVE: Chart reviewed and the patient interviewed. Also discussed the patient's condition with the staff and reviewed records and labs. The patient continued to show some improvement and seems to be slightly calmer today, but he is still having episodes of yelling and screaming loud. The patient also is still confused and is still easily agitated. Also, still needs lots of redirections. The patient also still has mood swings and is still disheveled. ASSESSMENT: The patient is still aggressive and psychotic. TREATMENT PLAN: Continue to monitor his behavior and his condition closely. Also, continue adjusting psychotropic medications and working on his irritability. JOB# [id number]
[2017-07-02] MEDS: Multivitamin Tab PO SCH (08:18)
[2017-07-02] MEDS: Aspirin 81mg Chewable Tab PO SCH (08:18)
--- NOTE | 2017-07-02 08:40 | General Progress Note ---
Subjective - Review of Systems Service Date: 07/02/17 Subjective: Awake, alert, afebrile. No new changes. Patient has improved PO intake. taking medications. Objective - Results Result Diagrams: 06/27/17 09:09 06/27/17 09:09 Recent Labs: Laboratory Last Values WBC 6.8 Th/cmm (4.8-10.8) 06/27/17 09:09 RBC 4.70 Mil/cmm (3.80-5.80) 06/27/17 09:09 Hgb 15.1 gm/dL (12.6-17.4) 06/27/17 09:09 Hct 44.7 % (39.0-49.0) 06/27/17 09:09 MCV 95.1 fl (80-99) 06/27/17 09:09 MCH 32.2 pg (27.0-31.0) H 06/27/17 09:09 MCHC Differential 33.9 pg (28.0-36.0) 06/27/17 09:09 RDW 13.5 % (11.5-20.0) 06/27/17 09:09 Plt Count 148 Th/cmm (150-400) L D 06/27/17 09:09 MPV 8.5 fl 06/27/17 09:09 Neutrophils % 73.7 % (40.0-80.0) 06/27/17 09:09 Lymphocytes % 16.3 % (20.0-50.0) L 06/27/17 09:09 Monocytes % 6.3 % (2.0-10.0) 06/27/17 09:09 Eosinophils % 2.8 % (0.0-5.0) 06/27/17 09:09 Basophils % 0.9 % (0.0-2.0) 06/27/17 09:09 PT 10.1 SECONDS (9.5-11.5) 06/18/17 17:42 INR 0.97 (0.5-1.4) 06/18/17 17:42 PTT (Actin FS) 23.3 SECONDS (26.0-38.0) L 06/18/17 17:42 Sodium 145 mEq/L (136-145) 06/27/17 09:09 Potassium 4.9 mEq/L (3.5-5.1) 06/27/17 09:09 Chloride 110 mEq/L (98-107) H 06/27/17 09:09 Carbon Dioxide 30.6 mEq/L (21.0-31.0) 06/27/17 09:09 Anion Gap 9.3 (7.0-16.0) 06/27/17 09:09 BUN 33 mg/dL (7-25) H 06/27/17 09:09 Creatinine 1.2 mg/dL (0.7-1.3) 06/27/17 09:09 Est GFR ( Amer) TNP 06/27/17 09:09 Est GFR (Non-Af Amer) TNP 06/27/17 09:09 BUN/Creatinine Ratio 27.5 06/27/17 09:09 Glucose 160 mg/dL (70-105) H 06/27/17 09:09 Hemoglobin A1c % 5.6 % (4.0-6.0) 06/27/17 09:09 Calcium 9.8 mg/dL (8.6-10.3) 06/27/17 09:09 Total Bilirubin 0.3 mg/dL (0.3-1.0) 06/18/17 17:42 AST 28 U/L (13-39) 06/18/17 17:42 ALT 32 U/L (7-52) 06/18/17 17:42 Alkaline Phosphatase 43 U/L (34-104) 06/18/17 17:42 Troponin I 0.01 ng/mL (0.01-0.05) 06/18/17 17:42 Total Protein 7.0 gm/dL (6.0-8.3) 06/18/17 17:42 Albumin 4.3 gm/dL (4.2-5.5) 06/18/17 17:42 Globulin 2.7 gm/dL 06/18/17 17:42 Albumin/Globulin Ratio 1.6 (1.0-1.8) 06/18/17 17:42 Triglycerides 120 mg/dL (<150) 06/18/17 17:42 Cholesterol 192 mg/dL (<200) 06/18/17 17:42 LDL Cholesterol Direct 150 mg/dL (75-193) 06/18/17 17:42 HDL Cholesterol 46 mg/dL (23-92) 06/18/17 17:42 TSH 1.27 uIU/ml (0.34-5.60) 06/18/17 17:42 RPR NONREACTIVE (NONREACTIVE) 06/18/17 17:42 - Physical Exam Vitals and I&O: Vital Signs Temp 97.8 F 07/02/17 06:31 Pulse 55 07/02/17 06:31 Resp 16 07/02/17 06:31 BP 111/50 07/02/17 06:31 Pulse Ox 95 07/02/17 06:31 Intake & Output 07/01/17 07/02/17 07/02/17 18:59 06:59 18:59 Intake Total 850 Balance 850 Intake: Oral 850 Other: # Voids 5 # Bowel Movements 0 Stool Characteristics Formed Active Medications: Current Medications Acetaminophen (Tylenol) 650 mg PO Q4HR PRN PRN Reason: Mild Pain / Temp above 100 Stop: 08/17/17 22:02 Al Hydrox/Mg Hydrox/Simethicone (Maalox) 30 ml PO Q4HR PRN PRN Reason: GI DISTRESS Stop: 08/17/17 22:02 Aspirin (Aspirin Chewable) 81 mg PO DAILY [facility] Stop: 08/18/17 08:59 Last Admin: 07/02/17 08:18 Dose: 81 mg Bisacodyl (Dulcolax 10 Mg Supp) 10 mg RC Q72HR PRN PRN Reason: Constipation Stop: 08/17/17 22:14 Buspirone HCl (Buspar) 15 mg PO BID CHRISTOPHER PRN Reason: Protocol Stop: 08/18/17 16:59 Last Admin: 07/02/17 08:18 Dose: 15 mg Clonazepam (Klonopin) 0.5 mg PO TID PRN; Protocol PRN Reason: Anxiety Stop: 08/18/17 13:59 Last Admin: 07/01/17 16:46 Dose: 0.5 mg Gabapentin (Neurontin) 100 mg PO QID CHRISTOPHER Stop: 08/20/17 12:59 Last Admin: 07/02/17 08:18 Dose: 100 mg Magnesium Hydroxide (Milk Of Magnesia) 30 ml PO HS PRN PRN Reason: Constipation Multivitamins/Vitamin C (Theragran) 1 tab PO DAILY [facility]STOPHER Stop: 08/18/17 08:59 Last Admin: 07/02/17 08:18 Dose: 1 tab Risperidone (Risperdal) 0.5 mg PO BID CHRISTOPHER PRN Reason: Protocol Stop: 08/18/17 16:59 Last Admin: 07/02/17 08:18 Dose: 0.5 mg Sodium Phosphate (Fleet Enema) 135 ml RC Q72HR PRN PRN Reason: Constipation Stop: 08/17/17 22:14 Zolpidem Tartrate (Ambien) 5 mg PO HS PRN PRN Reason: Insomnia Stop: 08/26/17 17:09 Last Admin: 06/30/17 23:00 Dose: 5 mg General: Alert, No acute distress HEENT: Atraumatic, PERRLA, EOMI Neck: Supple Cardiovascular: Regular rate, Normal S1, Normal S2 Lungs: Clear to auscultation Abdomen: Bowel sounds, Soft Extremities: no Clubbing, no Cyanosis, no Edema Neurological: Normal gait, Normal speech Skin: no Rash Assessment/Plan - Problem List Patient Problems: All Active Problems Anemia (Acute) D64.9 Anxiety (Acute) F41.9 Dementia (Acute) F03.90 Elevated blood sugar (Acute) R73.9 Encephalopathy (Acute) G93.40 Hypernatremia (Acute) E87.0 INCREASED AGITATION AND LOWER LIP TRAUMA (Acute) Psychosis (Acute) F29 Renal insufficiency (Acute) Schizophrenia (Acute) F20.9 Weakness (Acute) - Assessment Assessment: Current Active Problems Problem Status Onset INCREASED AGITATION AND LOWER LIP TRAUMA Acute psychosis dementia schizophrenia anxiety disorder metabolic encephalopathy anemia muscle weakness renal insufficiency elevated blood sugar hypernatremia now improved. Na is 145 and cr 1.2 - Plan Plan: psychosis schizophrenia dementia encephalopathy anxiety disorder anemia weakness renal insufficiency ... now improved. Cr 1.2. Will encourage PO fluids. Elevated blood sugar ... A1c is normal. Nutritional Asmnt/Malnutr-PDOC - Dietary Evaluation Malnutrition Findings (Please click <Entered> for more info): Nutritional Asmnt/Malnutrition Start: 06/23/17 10: 24 Text: Status: Complete Freq: Document 06/23/17 10:24 KEYUR (Rec: 06/23/17 10:30 KEYUR [id number]) Nutritional Asmnt/Malnutrition Patient General Information Nutritional Screening Moderate Risk Screening Diagnosis Psychosis Pertinent Medical Hx/Surgical Hx schizophrenia Subjective Information Pt did not answer RD questions appropriately. Current Diet Order/ Nutrition Support mechanical soft ground Patient / S.O Can't verbalize diet edu Pertinent Medications maalox, bisacodyl, MOM, theragran, fleet enema Pertinent Labs labs from 06/18/17: Na 150, K 4. 6, Cl 119, CO2 28.8, BUN 52, Cr 1.5, Ca 10.3, glucose 142 Nutritional Hx/Data Height 1.78 m Height (Calculated Centimeters) 177.8 Current Weight (lbs) 70.307 kg Weight (Calculated Kilograms) 70.3 Weight (Calculated Grams) 18620.8 Recent Weight Change No Weight Status Approriate GI Symptoms Difficult in: Chewing Food Allergies No Cultural/Ethnic/Hindu Belief none noted Usual diet at home mechanical soft Skin Integrity/Comment: sabrina score 14 Current %PO Good (75-100%) Estimated Nutritional Goals BEE in Kcals: Using Current wt Calories/Kcals/Kg 25-30kcals/kg Kcals Calculated 1750-2100kcals/day Protein: Using Current wt Protein g/k-1.2g/kg Protein Calculated 70-84g/day Fluid: ml 1750-2100ml/day (1ml/kcal) Nutritional Problem 1. Problem Problem No nutrition diangosis at this time Intervention/Recommendation Comments Recommend continuing mechanical soft ground diet Expected Outcomes/Goals Expected Outcomes/Goals PO intake >75%
--- NOTE | 2017-07-03 01:46 | Progress Notes ---
DATE: 07/02/2017 Case was discussed with staff of the patient, reviewed records. The patient continues to be confused, demented. Continues to be unpredictable, impulsive, needing redirection. He is sleeping better, eating better, compliant with the medication with no side effects, no sedation, no nausea. Dr. Mims increased BuSpar over the weekend to 10 mg twice a day, ____ anxiety and agitation. He seems to be showing some progress with that and we will continue to work with the patient in group therapy, milieu therapy, and adjust medication as needed. JOB# [id number]
--- NOTE | 2017-07-03 08:21 | General Progress Note ---
Subjective - Review of Systems Service Date: 07/03/17 Subjective: Awake, alert, afebrile. No new changes. Patient has improved PO intake. taking medications for anxiety and agitation. Seems to be responding better with increase Buspar. Objective - Results Result Diagrams: 06/27/17 09:09 06/27/17 09:09 Recent Labs: Laboratory Last Values WBC 6.8 Th/cmm (4.8-10.8) 06/27/17 09:09 RBC 4.70 Mil/cmm (3.80-5.80) 06/27/17 09:09 Hgb 15.1 gm/dL (12.6-17.4) 06/27/17 09:09 Hct 44.7 % (39.0-49.0) 06/27/17 09:09 MCV 95.1 fl (80-99) 06/27/17 09:09 MCH 32.2 pg (27.0-31.0) H 06/27/17 09:09 MCHC Differential 33.9 pg (28.0-36.0) 06/27/17 09:09 RDW 13.5 % (11.5-20.0) 06/27/17 09:09 Plt Count 148 Th/cmm (150-400) L D 06/27/17 09:09 MPV 8.5 fl 06/27/17 09:09 Neutrophils % 73.7 % (40.0-80.0) 06/27/17 09:09 Lymphocytes % 16.3 % (20.0-50.0) L 06/27/17 09:09 Monocytes % 6.3 % (2.0-10.0) 06/27/17 09:09 Eosinophils % 2.8 % (0.0-5.0) 06/27/17 09:09 Basophils % 0.9 % (0.0-2.0) 06/27/17 09:09 PT 10.1 SECONDS (9.5-11.5) 06/18/17 17:42 INR 0.97 (0.5-1.4) 06/18/17 17:42 PTT (Actin FS) 23.3 SECONDS (26.0-38.0) L 06/18/17 17:42 Sodium 145 mEq/L (136-145) 06/27/17 09:09 Potassium 4.9 mEq/L (3.5-5.1) 06/27/17 09:09 Chloride 110 mEq/L (98-107) H 06/27/17 09:09 Carbon Dioxide 30.6 mEq/L (21.0-31.0) 06/27/17 09:09 Anion Gap 9.3 (7.0-16.0) 06/27/17 09:09 BUN 33 mg/dL (7-25) H 06/27/17 09:09 Creatinine 1.2 mg/dL (0.7-1.3) 06/27/17 09:09 Est GFR ( Amer) TNP 06/27/17 09:09 Est GFR (Non-Af Amer) TNP 06/27/17 09:09 BUN/Creatinine Ratio 27.5 06/27/17 09:09 Glucose 160 mg/dL (70-105) H 06/27/17 09:09 Hemoglobin A1c % 5.6 % (4.0-6.0) 06/27/17 09:09 Calcium 9.8 mg/dL (8.6-10.3) 06/27/17 09:09 Total Bilirubin 0.3 mg/dL (0.3-1.0) 06/18/17 17:42 AST 28 U/L (13-39) 06/18/17 17:42 ALT 32 U/L (7-52) 06/18/17 17:42 Alkaline Phosphatase 43 U/L (34-104) 06/18/17 17:42 Troponin I 0.01 ng/mL (0.01-0.05) 06/18/17 17:42 Total Protein 7.0 gm/dL (6.0-8.3) 06/18/17 17:42 Albumin 4.3 gm/dL (4.2-5.5) 06/18/17 17:42 Globulin 2.7 gm/dL 06/18/17 17:42 Albumin/Globulin Ratio 1.6 (1.0-1.8) 06/18/17 17:42 Triglycerides 120 mg/dL (<150) 06/18/17 17:42 Cholesterol 192 mg/dL (<200) 06/18/17 17:42 LDL Cholesterol Direct 150 mg/dL (75-193) 06/18/17 17:42 HDL Cholesterol 46 mg/dL (23-92) 06/18/17 17:42 TSH 1.27 uIU/ml (0.34-5.60) 06/18/17 17:42 RPR NONREACTIVE (NONREACTIVE) 06/18/17 17:42 - Physical Exam Vitals and I&O: Vital Signs Temp 98.2 F 07/03/17 06:35 Pulse 58 07/03/17 06:35 Resp 19 07/03/17 06:35 BP 110/57 07/03/17 06:35 Pulse Ox 98 07/03/17 06:35 Intake & Output 07/02/17 07/03/17 07/03/17 18:59 06:59 18:59 Intake Total 2400 240 Balance 2400 240 Weight (lbs) 70.307 kg Intake: Oral 2400 240 Other: # Voids 5 3 # Bowel Movements 1 0 Stool Characteristics Formed Active Medications: Current Medications Acetaminophen (Tylenol) 650 mg PO Q4HR PRN PRN Reason: Mild Pain / Temp above 100 Stop: 08/17/17 22:02 Al Hydrox/Mg Hydrox/Simethicone (Maalox) 30 ml PO Q4HR PRN PRN Reason: GI DISTRESS Stop: 08/17/17 22:02 Aspirin (Aspirin Chewable) 81 mg PO DAILY [facility] Stop: 08/18/17 08:59 Last Admin: 07/02/17 08:18 Dose: 81 mg Bisacodyl (Dulcolax 10 Mg Supp) 10 mg RC Q72HR PRN PRN Reason: Constipation Stop: 08/17/17 22:14 Buspirone HCl (Buspar) 15 mg PO BID [facility] PRN Reason: Protocol Stop: 08/18/17 16:59 Last Admin: 07/02/17 16:15 Dose: 15 mg Clonazepam (Klonopin) 0.5 mg PO TID PRN; Protocol PRN Reason: Anxiety Stop: 08/18/17 13:59 Last Admin: 07/01/17 16:46 Dose: 0.5 mg Gabapentin (Neurontin) 100 mg PO QID [facility] Stop: 08/20/17 12:59 Last Admin: 07/02/17 21:32 Dose: 100 mg Magnesium Hydroxide (Milk Of Magnesia) 30 ml PO HS PRN PRN Reason: Constipation Multivitamins/Vitamin C (Theragran) 1 tab PO DAILY [facility]RISTOPHER Stop: 08/18/17 08:59 Last Admin: 07/02/17 08:18 Dose: 1 tab Risperidone (Risperdal) 0.5 mg PO BID CHRISTOPHER PRN Reason: Protocol Stop: 08/18/17 16:59 Last Admin: 07/02/17 16:16 Dose: 0.5 mg Sodium Phosphate (Fleet Enema) 135 ml RC Q72HR PRN PRN Reason: Constipation Stop: 08/17/17 22:14 Zolpidem Tartrate (Ambien) 5 mg PO HS PRN PRN Reason: Insomnia Stop: 08/26/17 17:09 Last Admin: 07/02/17 21:32 Dose: 5 mg General: Alert, No acute distress HEENT: Atraumatic, PERRLA, EOMI Neck: Supple Cardiovascular: Regular rate, Normal S1, Normal S2 Lungs: Clear to auscultation Abdomen: Bowel sounds, Soft Extremities: no Clubbing, no Cyanosis, no Edema Neurological: Normal gait, Normal speech Skin: no Rash Assessment/Plan - Problem List Patient Problems: All Active Problems Anemia (Acute) D64.9 Anxiety (Acute) F41.9 Dementia (Acute) F03.90 Elevated blood sugar (Acute) R73.9 Encephalopathy (Acute) G93.40 Hypernatremia (Acute) E87.0 INCREASED AGITATION AND LOWER LIP TRAUMA (Acute) Psychosis (Acute) F29 Renal insufficiency (Acute) Schizophrenia (Acute) F20.9 Weakness (Acute) - Assessment Assessment: Current Active Problems Problem Status Onset INCREASED AGITATION AND LOWER LIP TRAUMA Acute psychosis dementia schizophrenia anxiety disorder metabolic encephalopathy anemia muscle weakness renal insufficiency elevated blood sugar hypernatremia now improved. Na is 145 and cr 1.2 - Plan Plan: psychosis schizophrenia dementia encephalopathy anxiety disorder anemia weakness renal insufficiency ... now improved. Cr 1.2. Will encourage PO fluids. Elevated blood sugar ... A1c is normal. Nutritional Asmnt/Malnutr-PDOC - Dietary Evaluation Malnutrition Findings (Please click <Entered> for more info): Nutritional Asmnt/Malnutrition Start: 06/23/17 10: 24 Text: Status: Complete Freq: Document 06/23/17 10:24 KEYUR (Rec: 06/23/17 10:30 [facility] Nutritional Asmnt/Malnutrition Patient General Information Nutritional Screening Moderate Risk Screening Diagnosis Psychosis Pertinent Medical Hx/Surgical Hx schizophrenia Subjective Information Pt did not answer RD questions appropriately. Current Diet Order/ Nutrition Support mechanical soft ground Patient / S.O Can't verbalize diet edu Pertinent Medications maalox, bisacodyl, MOM, theragran, fleet enema Pertinent Labs labs from 06/18/17: Na 150, K 4. 6, Cl 119, CO2 28.8, BUN 52, Cr 1.5, Ca 10.3, glucose 142 Nutritional Hx/Data Height 1.78 m Height (Calculated Centimeters) 177.8 Current Weight (lbs) 70.307 kg Weight (Calculated Kilograms) 70.3 Weight (Calculated Grams) 67228.8 Recent Weight Change No Weight Status Approriate GI Symptoms Difficult in: Chewing Food Allergies No Cultural/Ethnic/Moravian Belief none noted Usual diet at home mechanical soft Skin Integrity/Comment: sabrina score 14 Current %PO Good (75-100%) Estimated Nutritional Goals BEE in Kcals: Using Current wt Calories/Kcals/Kg 25-30kcals/kg Kcals Calculated 1750-2100kcals/day Protein: Using Current wt Protein g/k-1.2g/kg Protein Calculated 70-84g/day Fluid: ml 1750-2100ml/day (1ml/kcal) Nutritional Problem 1. Problem Problem No nutrition diangosis at this time Intervention/Recommendation Comments Recommend continuing mechanical soft ground diet Expected Outcomes/Goals Expected Outcomes/Goals PO intake >75%
[2017-07-03] MEDS: Aspirin 81mg Chewable Tab PO SCH (10:00)
[2017-07-03] MEDS: Multivitamin Tab PO SCH (10:00)
--- NOTE | 2017-07-03 12:05 | Discharge Summary ---
DATE OF DISCHARGE: 07/03/2017 IDENTIFYING INFORMATION: The patient is a 72-year-old male. HISTORY OF PRESENT ILLNESS: The patient was referred from [facility] because of agitation, confused, not following direction, combative, fighting with staff. He was a poor historian, demented, confused, unable to answer questions, flat affect with a history of schizophrenia. COURSE IN THE HOSPITAL: The patient was continued on medication prior admission. He was on BuSpar 10 mg twice a day, increase to 15 mg twice a day on 06/30/2017 because of agitation. He was on clonazepam 0.5 mg 3 times a day on an as needed basis. He used to be on the higher dose ____ down on the dose, also added Neurontin 100 mg 4 times a day to replace the Klonopin that he was on and also, he added Risperdal because of agitation, increased to 0.5 mg twice a day, multivitamin. The patient progressively got better. He was no longer agitated, sleeping well, eating well. He thought he improved. He was not acting in anyway dangerous. He would be going to a nursing facility, which they can take care of him to a lesser level of care, so we felt he could be discharged. FINAL DIAGNOSES: AXIS I: Psychosis, not otherwise specified, dementia. MEDICAL DIAGNOSES: As per medical doctor. The patient will go back to the assisted, the same where he came from. He will follow up with the psychiatrist, primary care physician and therapist. EXPECTED OUTCOME: Stable if the patient complies with the above. [facility]# [id number]
== END 2017-07-03 21:25 | disposition home or self-care (01) | DRG 885 ==
LOC: ER 17:08 → GERO 20:30
PROVIDERS: ADMIT Psychiatry & Neurology Psychiatry; ATTEND Psychiatry & Neurology Psychiatry
DX: F29 Unspecified psychosis not due to a substance or known physiological condition (principal); G93.41 Metabolic encephalopathy; E87.0 Hyperosmolality and hypernatremia; F03.90 Unspecified dementia, unspecified severity, without behavioral disturbance, psychotic disturbance, mood disturbance, and anxiety; F20.9 Schizophrenia, unspecified; D64.9 Anemia, unspecified; F41.9 Anxiety disorder, unspecified; M62.81 Muscle weakness (generalized); N28.9 Disorder of kidney and ureter, unspecified; Z79.82 Long term (current) use of aspirin
CPT/HCPCS: 36415-UA; 71010-TC; 80048-TC; 80053-TC; 80061-TC; 83036-90; 84443-TC; 84484-TC; 85025-TC; 85610-TC; 85730-TC; 86592-TC; 90899; 93005; G0410; Z7610